=== PATIENT | female | born 1945 | race Caucasian/White ===

== ENCOUNTER → 2017-12-07 10:16 | Outpatient (CLI) | payer MEDICARE, SELFPAY ==
[2017-12-07 12:21] LABS: AST(SGOT) 20 U/L (15-37); Alanine Aminotransfer ALT/SGPT 33 U/L (13-56); Alkaline Phosphatase 71 U/L (45-117); Bilirubin, Direct 0.09 mg/dL (0.00-0.30); Cholesterol 225 mg/dL (200); High Density Lipoprotein 42 mg/dL; Triglycerides 289 mg/dL; Very Low Density Lipoprotein 58 mg/dL (5-40)
== END ==
PROVIDERS: Physician Assistant Medical; Family Provider Internal Medicine; PCP Internal Medicine; Visit Provider Internal Medicine Cardiovascular Disease
DX: E78.5 Hyperlipidemia, unspecified (principal)
CPT/HCPCS: 36415; 80061; 80076

== ENCOUNTER → 2018-01-20 09:14 | Outpatient (CLI) | payer MEDICARE, SELFPAY ==
[2018-01-20 10:42] LABS: AST(SGOT) 25 U/L (15-37); Alanine Aminotransfer ALT/SGPT 42 U/L (13-56); Albumin, Serum 3.6 g/dL (3.2-5.0); Alkaline Phosphatase 63 U/L (45-117); Bilirubin, Direct 0.08 mg/dL (0.00-0.30); Cholesterol 194 mg/dL (200); Globulin 3.7 g/dL (2.2-4.2); High Density Lipoprotein 49 mg/dL; Protein, Total 7.3 g/dL (6.4-8.2); Triglycerides 186 mg/dL; Very Low Density Lipoprotein 37 mg/dL (5-40)
== END ==
PROVIDERS: Family Provider Internal Medicine; PCP Internal Medicine; Visit Provider Internal Medicine Cardiovascular Disease
DX: E78.5 Hyperlipidemia, unspecified (principal)
CPT/HCPCS: 36415; 80061; 80076

== ENCOUNTER → 2018-12-30 07:45 | Outpatient (CLI) | payer MEDICARE, SELFPAY ==
[2017-12-10 08:36] VITALS: BMI 29.5
[2018-12-30 09:01] LABS: AST(SGOT) 25 U/L (15-37); Alanine Aminotransfer ALT/SGPT 39 U/L (13-56); Albumin, Serum 3.6 g/dL (3.2-5.0); Alkaline Phosphatase 73 U/L (45-117); Bilirubin, Direct 0.07 mg/dL (0.00-0.30); Cholesterol 200 mg/dL (200); Globulin 3.6 g/dL (2.2-4.2); High Density Lipoprotein 39 mg/dL; Protein, Total 7.2 g/dL (6.4-8.2); Triglycerides 234 mg/dL; Very Low Density Lipoprotein 47 mg/dL (5-40)
== END ==
PROVIDERS: Internal Medicine Cardiovascular Disease; Family Provider Internal Medicine; PCP Internal Medicine; Referring Provider Physician Assistant Medical; Visit Provider Physician Assistant Medical
DX: E78.5 Hyperlipidemia, unspecified (principal)
CPT/HCPCS: 36415; 80061; 80076

== ENCOUNTER 2020-01-23 19:41 | Emergency (ER) | payer MEDICARE, SELFPAY ==
[2019-01-02 08:40] VITALS: BMI 30.7
[2020-01-23 19:41] VITALS: BP 133/68; PULSE 104; RESP 20; TEMP 37.4; O2SAT 96; BMI 31.8
--- NOTE | 2020-01-23 20:02 | EKG12_ITS ---
Test Reason : GENILLNESS Blood Pressure : / mmHG Vent. Rate : 089 BPM Atrial Rate : 089 BPM P-R Int : 186 ms QRS Dur : 086 ms QT Int : 372 ms P-R-T Axes : 050 -06 036 degrees QTc Int : 452 ms Normal sinus rhythm Minimal voltage criteria for LVH, may be normal variant Borderline ECG Confirmed by CLAYTON MCCABE ([id number]), newspaper or periodical editor NELLY RYAN ([id number]) on 01/25/2020 11:45:57 AM Referred By: JHONY Confirmed By:CLAYTON MCCABE
--- NOTE | 2020-01-23 20:02 | RAD_ITS ---
HISTORY: CHILLS, SHAKING. EXAM: XR Chest 1 View: COMPARISON: January 20, 2013 FINDINGS: # of images incl. paperwork: 1 Tortuosity of the descending thoracic aorta is slightly more accentuated. Since the previous study the patient has had left rotator cuff repair. Shoulder arthritis remains. Lungs are clear. Heart is not enlarged. No acute osseous pathology perceived. Pulmonary vascularity is distinct. No effusions. RAD/Chest 1 View (Portable) IMPRESSION: No acute cardiopulmonary disease perceived. at 2052 Reported and signed by: Jovi Butler MD Electronically Signed: Jovi Butler MD at 20:51 EDT Tel , Service support ,
--- NOTE | 2020-01-23 20:03 | ED.DCSUM_ITS ---
- ER Visit Summary Date of Service: 01/23/20 Chief Complaint: Chills and body aches History of Present Illness: The patient is a 74 F 3 of palpitations and muscle aches and hypothyroidism. Patient's had multiple surgeries. States she felt fine today until 3:30 PM started aching all over and having chills. No documented fever. No nausea, vomiting or diarrhea. Last 2 days she has had dysuria but no cloudy or bloody urine. No abdominal pain. No chest pain or shortness of breath. Says she has muscle cramping. Denies any cough or abdominal pain. Physical Examination: Older female coming by her spouse vital signs stable afebrile. Temperature nine 9.4. Pulse ox 96% on room air no signs hypoxia. No distress. HEENT exam unremarkable. Neck nontender no lymph adenopathy. Lungs clear to auscultation bilaterally. Heart regular rhythm no murmur. Abdomen soft nontender normal bowel sounds no peritoneal signs. Patient moving all 4 extremities are neurovascular intact. Calves nontender without edema. Neurologically she is awake alert with no focal motor deficits. Test Results: X-ray portable 1 view read by myself and the radiologist shows no acute abnormality. Normal cardiac silhouette. No infiltrate. EKG shows normal sinus rhythm rate 89 with no acute abnormality. CBC normal white count of 9. Hemoglobin 13. No bands. Chemistries unremarkable gap of 7. BUN of 30 creatinine 0.9. UA normal. No nitrates, no white cells, no red cells and no bacteria. Blood cultures x2 are pending. Repeat exam at 2150 patient is doing well. Has no complaints. I repeated her oral temperature was 97.4. Her abdomen is benign. She states she is feeling better. We discussed all of her test results. They are comfortable being discharged home. Emergency Department Course and Treatment: Older female with chills and body aches concern for infectious etiology. Possible UTI or even pyelonephritis. Infectious work-up will be pursued. Treatment Plan: Outpatient follow-up. Return if worse. Disposition: Discharge Impression: Acute chills uncertain etiology Viral syndrome This note was generated with [employer] dictation software. It may contain incorrect words, spelling, and punctuation that were not noted in review of the chart prior to signing ED Disposition - Plan for ED Patient: Referrals: Stephane Rhodes MD [Primary Care Provider] -
[2020-01-23 20:24] VITALS: BP 123/50; PULSE 90; RESP 18; TEMP 37.3; O2SAT 96
[2020-01-23 20:26] LABS: Absolute Lymphocyte Count 0.35 X10^3/uL (0.83-4.51); Absolute Neutrophil Count 8.4 X10^3/uL (2.0-7.7); Basophil# 0.01 X10^3/uL; Basophil% 0.1 % (0-1); Eosinophil# 0.04 X10^3/uL; Eosinophils% 0.4 % (0-5); Hematocrit 41.3 % (37-47); Hemoglobin 13.6 g/dL (12.0-15.0); Lymphocyte # 0.35 X10^3/ul (4.0); Lymphocyte % 3.9 % (19-41); Mean Corp Hgb Conc 32.9 g/dL (32-36); Mean Corpuscular Hgb 30.4 pg (27.0-32.0); Mean Corpuscular Volume 92.2 fL (81-99); Monocyte# 0.18 X10^3/uL; NRBC Flagged by Analyzer 0 % (0-5); Neutrophil # 8.36 X10^3/uL (2.7-7.7); POSITIVE DIFFERENTIAL YES; Platelet Count 178 K/mm3 (150-450); RBC Distribution Width CV 11.9 % (11.6-14.6); RBC Distribution Width SD 40.4 fl (35.1-43.9); Red Blood Count 4.48 M/mm3 (4.2-5.4)
[2020-01-23] MEDS: 0.9% Normal Saline 1,000 ML 1000 ML IV (20:27)
[2020-01-23 20:31] LABS: Differential Indicated SCAN CRITERIA MET
[2020-01-23 20:46] LABS: Anion Gap 7 (5-15); BUN 30 mg/dL (7-18); BUN/Creat Ratio 32.6 RATIO (10-20); Calcium,Total 8.8 mg/dL (8.5-10.1); Chloride 104 mmol/L (98-107); Creatinine, Serum 0.92 mg/dL (0.55-1.02); EST Glomerular Filtration Rate 63 mL/min (>60); Est Glom Filt Rate - Afr Amer 77 mL/min (>60); Estimated Creatinine Clearance 39.12 ml/min; Glucose 142 mg/dL (74-106); Potassium 3.9 mmol/L (3.5-5.1); Sodium Level 138 mmol/L (136-145)
[2020-01-23 20:50] LABS: Bacteria 0 SEEN /hpf (None Seen); Mucous, Urine 0 SEEN /hpf (<or=2+); Red Blood Cells-Urine 0 SEEN /hpf (0-5); White Blood Cells 0 SEEN /hpf (0-5)
[2020-01-23 20:51] LABS: Color, Urine Yellow (Yellow); Glucose, Dipstick Normal (Normal); Ketone-Dipstick Negative (Negative); Leukocyte Esterase-Dipstick Negative /ul (Negative); Nitrite-Dipstick Negative (Negative); Occult Blood-Urine Negative /ul (Negative); Protein-Dipstick Negative (Negative); Specific Gravity, Urine 1.015 (1.002-1.030); Urine Bilirubin Dipstick Negative (Negative); Urine Clarity Sl. Cloudy (Clear); Urine Urobilinogen Normal (Normal)
[2020-01-23 20:54] LABS: Differential Comment SCANNED
[2020-01-23 20:57] LABS: Squamous Epithelial Cells - UA 0-5 SEEN /hpf (5-10)
[2020-01-23 21:00] VITALS: BP 132/60; PULSE 94; RESP 15; TEMP 36.6; O2SAT 94
[2020-01-23 21:56] VITALS: BP 127/60; PULSE 71; RESP 17; O2SAT 97
--- NOTE | 2020-01-23 21:57 | DCINST.ED_ITS ---
ED Disposition - Plan for ED Patient: Disposition: Home or Assisted Living Instructions: ED Viral Syndrome Referrals: Stephane Rhodes MD [Primary Care Provider] - 3-5 Days if not improving Additional Instructions: Fluids and rest. All your test tonight were normal there is no obvious signs of any type of bacterial infection. This may or may not be a virus. Follow-up with your doctor if not improving. Return to the ER if you are feeli ng worse.
== END 2020-01-23 22:06 | disposition home or self-care (01) ==
PROVIDERS: Emergency Provider Emergency Medicine; PCP Internal Medicine
DX: B34.9 Viral infection, unspecified (principal); E03.9 Hypothyroidism, unspecified; Z79.82 Long term (current) use of aspirin; Z79.899 Other long term (current) drug therapy
CPT/HCPCS: 71045; 80048; 81001; 85025; 87040; 93005; 96360; 99284; J7030

== ENCOUNTER → 2020-04-05 07:43 | Outpatient (CLI) | payer MEDICARE, SELFPAY ==
[2020-04-05 09:14] LABS: AST(SGOT) 24 U/L (15-37); Alanine Aminotransfer ALT/SGPT 42 U/L (13-56); Albumin, Serum 3.7 g/dL (3.2-5.0); Alkaline Phosphatase 79 U/L (45-117); Bilirubin, Direct 0.12 mg/dL (0.00-0.30); Cholesterol 203 mg/dL (200); High Density Lipoprotein 39 mg/dL; Protein, Total 7.7 g/dL (6.4-8.2); Triglycerides 209 mg/dL; Very Low Density Lipoprotein 42 mg/dL (5-40)
== END ==
PROVIDERS: PCP Internal Medicine; Referring Provider Physician Assistant Medical; Visit Provider Physician Assistant Medical
DX: E78.5 Hyperlipidemia, unspecified (principal)
CPT/HCPCS: 36415; 80061; 80076

== ENCOUNTER 2021-04-08 19:49 | Emergency (ER) | payer MEDICARE, SELFPAY ==
[2021-04-08 19:51] VITALS: BP 115/48; PULSE 73; RESP 18; TEMP 37.8; O2SAT 93; BMI 31.2
[2021-04-08 20:40] LABS: Absolute Lymphocyte Count 0.72 X10^3/uL (0.83-4.51); Absolute Neutrophil Count 2.6 X10^3/uL (2.0-7.7); Basophil# 0.01 X10^3/uL; Basophil% 0.3 % (0-1); Eosinophil# 0.01 X10^3/uL; Eosinophils% 0.3 % (0-5); Hematocrit 37.7 % (37-47); Hemoglobin 12.3 g/dL (12.0-15.0); Lymphocyte # 0.72 X10^3/ul (0.83-4.51); Lymphocyte % 19.8 % (19-41); Mean Corp Hgb Conc 32.6 g/dL (32-36); Mean Corpuscular Hgb 29.3 pg (27.0-32.0); Mean Corpuscular Volume 89.8 fL (81-99); Mean Platelet Vol. 10.6 fl (6.2-12.0); Monocyte% 8.3 % (0-10); NRBC Flagged by Analyzer 0 % (0-5); Neutrophil # 2.58 X10^3/uL (2.7-7.7); Platelet Count 120 K/mm3 (150-450); RBC Distribution Width CV 12.7 % (11.6-14.6); RBC Distribution Width SD 42.3 fl (35.1-43.9); White Blood Count 3.6 K/mm3 (4.4-11.0)
[2021-04-08 20:59] LABS: Anion Gap 8 (5-15); BUN 12 mg/dL (7-18); Chloride 97 mmol/L (98-107); Creatinine, Serum 0.66 mg/dL (0.55-1.02); EST Glomerular Filtration Rate 92 mL/min (>60); Est Glom Filt Rate - Afr Amer 111 mL/min (>60); Estimated Creatinine Clearance 34.91 ml/min; Glucose 164 mg/dL (74-106); Potassium 3.9 mmol/L (3.5-5.1); Sodium Level 134 mmol/L (136-145)
[2021-04-08 21:15] LABS: Procalcitonin 0.12 ng/mL (0.00-0.09)
--- NOTE | 2021-04-08 21:20 | EX.ED.DYSGE1 ---
HPI History of Present Illness Chief Complaint: Nausea/Vomiting Detail of Chief Complaint: Nausea and COVID-19 infection Informant: patient Narrative Narrative: Patient presents to the emergency department not feeling well related to her COVID-19 infection. Patient states that she has had symptoms for 9 days and was diagnosed 5 days ago with COVID-19. Patient complains of nausea and dry heaves. He describes body aches and headache. She denies abdominal pain. She denies shortness of breath. She denies diarrhea. Patient has history of high cholesterol and history of arthritis. Patient denies urinary symptoms. Patient states her is also [facility] and has COVID-19. Patient is not immunized against COVID-19. Prior similar symptoms: No PFSH PFSH Medical History (Updated 04/08/21 @ 22:[address] Sampson Khan, DO) Diverticulitis GERD (gastroesophageal reflux disease) Hyperlipidemia Hypothyroidism Osteoarthritis Palpitations Syncope Home Medications albuterol sulfate 2 puff INHALATION Q4H PRN PRN 05/09/13 [History Last Taken Unknown] esomeprazole magnesium 40 mg PO DAILY 05/09/13 [History Last Taken 05/21/13 21:00 40] fluticasone propionate 2 spray NASAL DAILY 05/09/13 [History Last Taken Unknown] aspirin 81 mg tablet,delayed release 81 mg PO QDAY 12/07/17 [History Last Taken Unknown] biotin-folic acid-vitamin B complex with C-zinc 3 mg-0.8 mg tablet 1 tab PO QDAY tab 12/07/17 [History Last Taken Unknown] calcium carbonate 600 mg(1,500 mg)-vitamin D3 800 unit chewable tablet 1 tab PO QDAY tab 12/07/17 [History Last Taken Unknown] cholecalciferol (vitamin D3) 25 mcg (1,000 unit) tablet 1,000 unit PO QDAY 12/07/17 [History Last Taken Unknown] fexofenadine 180 mg tablet 180 mg PO QDAY PRN 12/07/17 [History Last Taken Unknown] lutein 20 mg tablet 20 mg PO QDAY 12/07/17 [History Last Taken Unknown] magnesium 250 mg tablet 250 mg PO QDAY 12/07/17 [History Last Taken Unknown] duloxetine 20 mg capsule,delayed release 20 mg PO QDAY cap 12/10/17 [History Last Taken Unknown] trazodone 50 mg tablet 50 mg PO QHS tab 12/10/17 [History Last Taken Unknown] atenolol 25 mg tablet 37.5 mg PO DAILY tab 04/10/20 [History Last Taken Unknown] celecoxib 100 mg capsule 200 mg PO BID cap 04/10/20 [History Last Taken Unknown] estradiol 1 g VAGINAL QWEEK 04/10/20 [History Last Taken Unknown] levothyroxine 150 mcg tablet 150 mcg PO DAILY 04/10/20 [History Last Taken Unknown] potassium gluconate 595 mg (99 mg) tablet 595 mg PO DAILY 04/10/20 [History Last Taken Unknown] ondansetron 4 mg PO Q8H PRN PRN #10 tab 04/08/21 [Rx Last Taken Unknown] Allergy/AdvReac Type Severity Reaction Status Date / Time ezetimibe [From Zetia] AdvReac Intermediate GI Verified 04/08/21 19:50 upset/diarrhea Sulfa (Sulfonamide AdvReac Intermediate Other Verified 04/08/21 19:50 Antibiotics) Kjjjoab-Poq-Toh Reductase AdvReac Other Verified 04/08/21 19:50 Inhibitor Family History Father Sudden cardiac , Onset Age: 77 Mother CVA (cerebral vascular accident) Atrial fibrillation Sister CAD (coronary artery disease) Myocardial infarction Surgical History History of arthroplasty of left knee History of bilateral breast reduction surgery History of carpal tunnel surgery History of laparoscopic cholecystectomy History of partial thyroidectomy History of total hysterectomy History of total right knee replacement Social History (Updated 04/10/20 @ 10:[address] Darwin Jc MD) Smoking Status: Never smoker alcohol intake: never ROS ROS ED Constitutional Constitutional ED: Reports systems reviewed and no addt'l complaints, except as documented; Denies body ache(s), change in weight or chills Eyes Eyes: Denies acute decrease in peripheral vision, change in vision, double vision or loss of vision ENT ENT ED: Reports none; Denies ear pain, lip swelling, loss taste/smell, neck pain, otalgia or sore throat Cardiovascular Cardiovascular: Reports none; Denies abdominal pain, chest pain with activity, leg edema, lightheadedness, palpitations, rapid heart rate or syncope Respiratory/Chest Respiratory/Chest: Reports none; Denies change in mental status, dry cough, dyspnea, hemoptysis, shortness of breath at rest or shortness of breath with exertion Gastrointestinal Gastrointestinal: Reports none, nausea and vomiting; Denies abdominal pain, change in stool character, diarrhea, hematemesis, hematochezia, melena or rectal bleeding Genitourinary Genitourinary ED: Reports none; Denies abdominal discomfort, anuria, dysuria, genital pain or polyuria Musculoskeletal Musculoskeletal: Reports none, arthralgias and myalgias; Denies back pain, difficulty walking, extremity pain or muscle weakness Integumentary Reports none; Denies abscess or rash Neurologic Neurologic: Reports none and headache(s); Denies abnormal gait, confusion, focal weakness, frequent falls, loss of vision, numbness, paresthesias, radicular pain, vertigo or weakness Psychiatric Psychiatric: Reports systems reviewed and no addt'l complaints, except as documented and none; Denies behavioral changes, confusion, difficulty concentrating, hallucinations, suicidal ideation, tactile hallucinations or visual hallucinations Endocrine Endocrinology: Denies none, cold intolerance, excessive sweating, fatigue or heat intolerance Hematologic/Lymphatic Hematologic/Lymphatic: Reports none; Denies anemia, easy bleeding or easy bruising Allergic/Immunologic Allergic/Immunologic ED: Denies as per HPI, none, lip swelling, mouth swelling, throat swelling, tongue swelling or hives EXAM Physical Exam Const Vital Signs: 04/08/21 19:51 04/08/21 21:21 04/08/21 21:23 Temperature 100.1 F H Temperature Source Temporal Pulse Rate 73 Respiratory Rate 18 22 H Respiratory Effort Normal Non-Labored Respiratory Depth Normal Respiratory Pattern Normal Blood Pressure 115/48 L Blood Pressure Mean 70 Pulse Ox 93 91 Oxygen Delivery Method Room Air Room Air Room Air 04/08/21 22:00 Temperature 98.4 F Temperature Source Temporal Pulse Rate 75 Respiratory Rate 20 H Respiratory Effort Respiratory Depth Respiratory Pattern Blood Pressure 124/58 H Blood Pressure Mean 80 Pulse Ox 92 Oxygen Delivery Method Room Air Positive well nourished and well developed General Appearance ED: well developed and NAD HEENT Reports TM's clear and moist mucous membranes normocephalic and atraumatic; Negative for trauma or tenderness Tympanic Membrane ED: Yes TM's clear Eyes PERRL and EOMs intact bilaterally General Eye ED: Negative for pale conjunctiva or scleral icterus Neck no lymphadenopathy, supple and no JVD General: Negative for tenderness Chest Wall inspection of chest normal and palpation of chest normal Chest: Negative for tenderness Resp normal respiratory effort and clear to auscultation bilaterally Effort and Inspection: Negative for respiratory distress or pain with movement Auscultation: Negative for rhonchi, wheezes or diminished lung sounds Cardio regular rate, regular rhythm, S1 normal heart sound, S2 normal heart sound and no murmurs Peripheral Pulses: pulses 2+ throughout GI normal to inspection, nondistended, normoactive bowel sounds, soft to palpation, non-tender, non-distended and no masses Back/Spine no CVA tenderness and no thoracic nor lumbar tenderness Extremity normal to inspection General Extremety ED: Negative for edema General Extremity: Negative for edema Neuro oriented x3, CN's II-XII intact bilaterally, no sensory deficits noted and gait normal Sensorium / Orientation: awake, alert, oriented to person, oriented to place and oriented to time Motor Exam: strength 5/5 throughout and strength abnormal Psych mental status grossly normal Skin no rashes or lesions noted and no wounds MDM MDM MDM Narrative Medical decision making narrative: Patient had nebulized tablets on arrival. She was given Zofran 4 mg IV and some IV fluids. Patient felt markedly improved. Feel patient can be safely discharged to home. She will be given a prescription for Zofran. Patient is comfortable with plan and states that she was just here to help get help with her nausea. Patient advised to return if increased difficulty breathing or condition should worsen anyway. Lab Data Attestation: I reviewed the patient's lab results. Labs: Laboratory Results - last 24 hr 04/08/21 04/08/21 04/08/21 20:27 20:27 20:27 WBC 3.6 L RBC 4.20 Hgb 12.3 Hct 37.7 MCV 89.8 MCH 29.3 MCHC 32.6 RDW Std Deviation 42.3 RDW Coeff of Moses 12.7 Plt Count 120 L MPV 10.6 Immature Gran % (Auto) 0.300 Neut % (Auto) 71.0 H Lymph % (Auto) 19.8 [place] % (Auto) 8.3 Eos % (Auto) 0.3 Baso % (Auto) 0.3 Absolute Neuts (auto) 2.6 Absolute Lymphs (auto) 0.72 L Nucleated RBC % 0 Sodium 134 L Potassium 3.9 Chloride 97 L Carbon Dioxide 29.0 Anion Gap 8 BUN 12 Creatinine 0.66 Estim Creat Clear Calc 34.91 Est GFR (MDRD) Af Amer 111 Est GFR (MDRD) Non-Af 92 BUN/Creatinine Ratio 18.0 Glucose 164 H Calcium 8.0 L Total Bilirubin 0.40 Direct Bilirubin 0.13 AST 34 ALT 40 Alkaline Phosphatase 69 Total Protein 7.2 Albumin 3.0 L Globulin 4.2 Lipase 111 Procalcitonin 04/08/21 20:27 WBC RBC Hgb Hct MCV MCH MCHC RDW Std Deviation RDW Coeff of Moses Plt Count MPV Immature Gran % (Auto) Neut % (Auto) Lymph % (Auto) [place] % (Auto) Eos % (Auto) Baso % (Auto) Absolute Neuts (auto) Absolute Lymphs (auto) Nucleated RBC % Sodium Potassium Chloride Carbon Dioxide Anion Gap BUN Creatinine Estim Creat Clear Calc Est GFR (MDRD) Af Amer Est GFR (MDRD) Non-Af BUN/Creatinine Ratio Glucose Calcium Total Bilirubin Direct Bilirubin AST ALT Alkaline Phosphatase Total Protein Albumin Globulin Lipase Procalcitonin 0.12 H Radiography Chest X-Ray - ED: 1 View Diagnostic Testing: Radiology Impression Chest X-Ray 04/08/21 21:21 IMPRESSION: Indeterminate right basilar opacity, may be secondary to a confluence of shadows however cannot exclude atelectasis and/or evolving pneumonia. Electronically Signed: Carmenza Shay MD at 22:23 EDT Tel , Service support , 1 view chest x-ray obtained interpreted by myself as bibasilar faint infiltrates. Radiology felt it was consistent with right basilar opacity which may be secondary to confluence of shadows however cannot exclude atelectasis and or evolving pneumonia. Discharge Plan Triage Chief Complaint: Nausea/Vomiting Other Complaint: Back ED Provider: Sampson Khan Dx/Rx/DC Orders Clinical Impression: Nausea, COVID-19 Instructions: Nausea Vomit Control, Caring for Someone Who Has COVID-19 Prescriptions: New ondansetron [ondansetron] 4 MG tablet 4 mg PO Q8H PRN PRN (Reason: Nausea) Qty: 10 RF: 0 No Action duloxetine [Cymbalta] 20 mg capsule,delayed release(DR/EC) 20 mg PO QDAY RF: 0 calcium carbonate 600 mg(1,500 mg)-vitamin D3 800 unit chewable tablet 600 mg (1,500 mg)-800 unit tablet,chewable 1 tab PO QDAY RF: 0 cholecalciferol (vitamin D3) 1,000 unit tablet 1,000 unit PO QDAY RF: 0 biotin-folic acid-vitamin B complex with C-zinc 3 mg-0.8 mg tablet 3-0.8 mg tablet 1 tab PO QDAY RF: 0 lutein 20 mg tablet 20 mg PO QDAY RF: 0 magnesium 250 mg tablet 250 mg PO QDAY RF: 0 aspirin 81 mg tablet,delayed release (DR/EC) 81 mg PO QDAY RF: 0 fexofenadine [Afshan Allergy] 180 mg tablet 180 mg PO QDAY PRN (Reason: Allergies) RF: 0 trazodone 50 mg tablet 50 mg PO QHS RF: 0 estradiol 0.01 % (0.1 mg/gram) cream 1 g VAGINAL QWEEK RF: 0 levothyroxine 150 mcg tablet 150 mcg PO DAILY RF: 0 potassium gluconate 595 mg (99 mg) tablet 595 mg PO DAILY RF: 0 albuterol sulfate 1 INHALER inhaler 2 puff INHALATION Q4H PRN PRN (Reason: Asthma) RF: 0 fluticasone propionate 1 SPRAY spray,suspension 2 spray NASAL DAILY RF: 0 esomeprazole magnesium 40 MG capsule 40 mg PO DAILY RF: 0 celecoxib 100 mg capsule 200 mg PO BID RF: 0 atenolol 25 mg tablet 37.5 mg PO DAILY RF: 0 Primary Care Provider: Stephane Rhodes Referrals: Stephane Rhodes MD [Primary Care Provider] - 5-7 Days Disposition Disposition: Home, Self Care
[2021-04-08 21:21] VITALS: RESP 22; O2SAT 91
--- NOTE | 2021-04-08 21:21 | RAD_ITS ---
STUDY: X-RAY CHEST REASON FOR EXAM: Female, 76 years old. COUGH. COVID POSITIVE TECHNIQUE: Single frontal view of the chest. COMPARISON: 01/20/2013 and 01/23/2020. FINDINGS: There is a vague right basilar opacity. Normal size heart. Normal mediastinum and sandie. Normal visualized pulmonary arteries. Normal visualized aortic arch and descending thoracic aorta. Normal visualized thoracic spine. Normal visualized ribs, clavicles, and shoulders. There is no demonstrated abnormality of the visualized soft tissue structures of the upper abdomen. RAD/Chest 1 View (Portable) IMPRESSION: Indeterminate right basilar opacity, may be secondary to a confluence of shadows however cannot exclude atelectasis and/or evolving pneumonia. Electronically Signed: Carmenza Shay MD at 22:23 EDT Tel , Service support ,
[2021-04-08 21:23] VITALS: O2SAT 92
[2021-04-08 22:00] VITALS: BP 124/58; PULSE 72; PULSE 75; RESP 20; RESP 26; TEMP 36.9; O2SAT 92
[2021-04-08 22:06] LABS: AST(SGOT) 34 U/L (15-37); Alanine Aminotransfer ALT/SGPT 40 U/L (13-56); Alkaline Phosphatase 69 U/L (45-117); Bilirubin, Direct 0.13 mg/dL (0.00-0.30); Globulin 4.2 g/dL (2.2-4.2); Lipase 111 U/L (73-393); Protein, Total 7.2 g/dL (6.4-8.2)
[2021-04-08] MEDS: 0.9% Normal Saline 1,000 ML 150 ML IV (22:21)
[2021-04-08 22:45] VITALS: BP 127/53; PULSE 77; RESP 21; TEMP 36.8; O2SAT 94
== END 2021-04-08 23:21 | disposition home or self-care (01) ==
PROVIDERS: Emergency Medicine; Emergency Provider Emergency Medicine; PCP Internal Medicine
DX: U07.1 COVID-19 (principal); E78.00 Pure hypercholesterolemia, unspecified; E03.9 Hypothyroidism, unspecified; K21.9 Gastro-esophageal reflux disease without esophagitis; M19.90 Unspecified osteoarthritis, unspecified site; Z79.82 Long term (current) use of aspirin; Z79.899 Other long term (current) drug therapy
CPT/HCPCS: 71045; 80048; 80076; 83690; 84145; 85025; 96360; 96361; 99283; J7030; A4216

== ENCOUNTER 2021-04-10 19:32 | Observation (INO) | payer MEDICARE, SELFPAY ==
[2021-04-10] VITALS (9 sets, daily range): BP systolic 109–132; BP diastolic 48–58; PULSE 73–80; RESP 18–23; TEMP 38.3; O2SAT 86–100; BMI 31.2
[2021-04-10 19:46] LABS: Absolute Lymphocyte Count 0.81 X10^3/uL (0.83-4.51); Absolute Neutrophil Count 2.6 X10^3/uL (2.0-7.7); Basophil# 0.01 X10^3/uL; Basophil% 0.3 % (0-1); Eosinophil# 0.01 X10^3/uL; Eosinophils% 0.3 % (0-5); Hematocrit 34.2 % (37-47); Hemoglobin 11.6 g/dL (12.0-15.0); Lymphocyte # 0.81 X10^3/ul (0.83-4.51); Lymphocyte % 21.7 % (19-41); Mean Corp Hgb Conc 33.9 g/dL (32-36); Mean Corpuscular Hgb 29.5 pg (27.0-32.0); Mean Platelet Vol. 9.8 fl (6.2-12.0); Monocyte# 0.26 X10^3/uL; NRBC Flagged by Analyzer 0 % (0-5); Neutrophil # 2.63 X10^3/uL (2.7-7.7); Neutrophil % 70.4 % (47-70); Platelet Count 136 K/mm3 (150-450); RBC Distribution Width CV 12.7 % (11.6-14.6); RBC Distribution Width SD 40.8 fl (35.1-43.9); Red Blood Count 3.93 M/mm3 (4.2-5.4); White Blood Count 3.7 K/mm3 (4.4-11.0)
[2021-04-10 20:17] LABS: D-Dimer Quantitative (DVT/PE) 0.93 FEU/ug/m (0.27-0.49)
[2021-04-10 20:23] LABS: ALB/GLOB Ratio 0.7 RATIO (0.9-2.4); AST(SGOT) 36 U/L (15-37); Alanine Aminotransfer ALT/SGPT 39 U/L (13-56); Albumin, Serum 2.8 g/dL (3.2-5.0); Alkaline Phosphatase 67 U/L (45-117); Anion Gap 8 (5-15); BUN 10 mg/dL (7-18); BUN/Creat Ratio 15.3 RATIO (10-20); Calcium,Total 7.5 mg/dL (8.5-10.1); Chloride 93 mmol/L (98-107); Creatinine, Serum 0.65 mg/dL (0.55-1.02); EST Glomerular Filtration Rate 94 mL/min (>60); Est Glom Filt Rate - Afr Amer 114 mL/min (>60); Estimated Creatinine Clearance 34.91 ml/min; Globulin 4.1 g/dL (2.2-4.2); Glucose 167 mg/dL (74-106); Potassium 3.4 mmol/L (3.5-5.1); Protein, Total 6.9 g/dL (6.4-8.2); Sodium Level 128 mmol/L (136-145)
--- NOTE | 2021-04-10 22:25 | EDS_ITS ---
HPI History of Present Illness Chief Complaint: General Illness Informant: patient Onset/Context/Timing Onset: Weeks Context: Gradual Onset Timing: Continuous Current Severity: Mild Narrative Narrative: 76-year-old female history of Covid diagnosis and on 12 days of symptoms. also has Covid and was admitted to the hospital. She was seen approximately 2 to 3 days ago and was discharged home from the emergency department. States she is feeling worse. Feels weaker. Has had a lot of nausea and vomiting. Feels dehydrated and short of breath. She denies any chest or abdominal pain. She still having fever and chills. Denies any dysuria. Prior similar symptoms: No Recent Illness/Hospitalization: No [facility] Medical History Diverticulitis GERD (gastroesophageal reflux disease) Hyperlipidemia Hypothyroidism Non-smoker Osteoarthritis Palpitations Syncope Home Medications esomeprazole magnesium 40 mg PO DAILY 05/09/13 [History Last Taken 04/10/21] fluticasone propionate 2 spray NASAL DAILY 05/09/13 [History Last Taken 04/10/21] aspirin 81 mg tablet,delayed release 81 mg PO QDAY 12/07/17 [History Last Taken 04/10/21] calcium carbonate 600 mg(1,500 mg)-vitamin D3 800 unit chewable tablet 1 tab PO QDAY tab 12/07/17 [History Last Taken 04/09/21] cholecalciferol (vitamin D3) 25 mcg (1,000 unit) tablet 1,000 unit PO QDAY 12/07/17 [History Last Taken 04/10/21] fexofenadine 180 mg tablet 180 mg PO QDAY PRN 12/07/17 [History Last Taken 04/10/21] duloxetine 20 mg capsule,delayed release 20 mg PO QDAY cap 12/10/17 [History Last Taken 04/10/21] trazodone 50 mg tablet 50 mg PO QHS tab 12/10/17 [History Last Taken 04/09/21] atenolol 25 mg tablet 37.5 mg PO DAILY tab 04/10/20 [History Last Taken 04/10/21] celecoxib 100 mg capsule 200 mg PO BID cap 04/10/20 [History Last Taken 04/10/21] levothyroxine 150 mcg tablet 150 mcg PO DAILY 04/10/20 [History Last Taken 04/10/21] ondansetron 4 mg PO Q8H PRN PRN #10 tab 04/08/21 [Rx Last Taken 04/10/21] Allergy/AdvReac Type Severity Reaction Status Date / Time ezetimibe [From Zetia] AdvReac Intermediate GI Verified 04/08/21 19:50 upset/diarrhea Sulfa (Sulfonamide AdvReac Intermediate Other Verified 04/08/21 19:50 Antibiotics) Hcxmelz-Edn-Jpt Reductase AdvReac Other Verified 04/08/21 19:50 Inhibitor Family History Father Sudden cardiac , Onset Age: 77 Mother CVA (cerebral vascular accident) Atrial fibrillation Sister CAD (coronary artery disease) Myocardial infarction Surgical History History of arthroplasty of left knee History of bilateral breast reduction surgery History of carpal tunnel surgery History of laparoscopic cholecystectomy History of partial thyroidectomy History of total hysterectomy History of total right knee replacement Social History Smoking Status: Never smoker alcohol intake: never ROS ROS ED ROS Narrative Nausea and vomiting. Fever and chills. Cough and shortness of breath. Review of Systems ROS Unobtainable: Denies due to encephalopathy Constitutional Constitutional ED: Reports chills, fever(s) and subjective Eyes Eyes: Denies change in vision ENT ENT ED: Denies ear pain or sore throat Cardiovascular Cardiovascular: Denies chest pain or palpitations Respiratory/Chest Respiratory/Chest: Reports cough and dyspnea Gastrointestinal Gastrointestinal: Reports diarrhea, nausea and vomiting; Denies abdominal pain Genitourinary Genitourinary ED: Denies dysuria or hematuria Musculoskeletal Musculoskeletal: Reports myalgias Integumentary Denies rash Neurologic Neurologic: Denies headache(s) Psychiatric Psychiatric: Denies depression Endocrine Endocrinology: Denies polyuria Allergic/Immunologic Allergic/Immunologic ED: Denies urticaria EXAM Physical Exam Narrative Exam Narrative: Elderly female. Initial vital signs are stable. She has a low- grade temperature 100.9. She does not look septic or toxic she does look dehydrated and weak. H EENT exam dry mucous membranes otherwise unremarkable. Neck nontender no lymphadenopathy. Lungs clear to auscultation bilaterally. Heart regular rhythm rate about 73. No murmur. Chest were nontender. Abdomen soft nontender. Moving all 4 extremities. Calves nontender no edema. Neurologically she is awake and alert with no focal motor deficits. Const Vital Signs: 04/10/21 19:32 04/10/21 20:30 04/10/21 20:31 Temperature 100.9 F H Temperature Source Temporal Pulse Rate 73 75 Respiratory Rate 20 H 18 Blood Pressure 128/50 H Blood Pressure Mean 76 Pulse Ox 92 86 95 Oxygen Delivery Method Room Air Room Air Nasal Cannula Oxygen Flow Rate (L/min) 3 04/10/21 21:17 04/10/21 21:40 04/10/21 21:41 Temperature Temperature Source Pulse Rate 75 Respiratory Rate 23 H Blood Pressure 116/53 L Blood Pressure Mean 74 Pulse Ox 96 98 98 Oxygen Delivery Method Nasal Cannula Nasal Cannula Oxygen Flow Rate (L/min) 3 3 04/10/21 22:14 04/10/21 22:37 04/10/21 23:00 Temperature Temperature Source Pulse Rate 74 80 Respiratory Rate 19 H 18 21 H Blood Pressure 109/58 L 132/48 H Blood Pressure Mean 75 76 Pulse Ox 93 89 100 Oxygen Delivery Method Room Air Room Air Nasal Cannula Oxygen Flow Rate (L/min) 2 Positive well nourished and well developed; Negative for obese, cachectic, contractures or unkempt General Appearance ED: well developed and NAD; Negative for unkempt, cachectic, contractures, cyanotic or diaphoretic Nutritional Appearance: Negative for cachectic or obese HEENT Reports dry mucous membranes; Denies moist mucous membranes Negative for trauma or tenderness Mouth ED: Yes dry mucous membranes Mouth: dry mucous membranes Eyes PERRL Neck no lymphadenopathy, supple and no JVD General: Negative for tenderness Chest Wall inspection of chest normal and palpation of chest normal Resp normal respiratory effort and clear to auscultation bilaterally Cardio regular rate, regular rhythm, S1 normal heart sound, S2 normal heart sound and no murmurs GI normal to inspection, nondistended, normoactive bowel sounds, non-tender, non- distended and no masses Auscultation: normoactive bowel sounds Palpation: soft; Negative for tender, guarding or rebound tenderness present Back/Spine no CVA tenderness General Back: Negative for CVA tenderness Extremity normal to inspection General Extremety ED: Negative for edema or tenderness General Extremity: Negative for edema Neuro oriented x3 and CN's II-XII intact bilaterally Sensorium / Orientation: alert; Negative for orientation impaired, lethargic or stuporous Motor Exam: strength 5/5 throughout Psych mental status grossly normal Appearance: Negative for unkempt Skin no rashes or lesions noted and no wounds MDM MDM MDM Narrative Medical decision making narrative: Older female 2 weeks of Covid symptoms. Clinically looks dehydrated and just generally weak. She will be treated with IV fluids. Tylenol. And will need admission. Repeat exam slightly improved with the IV fluids and medications. Already spoken the hospitalist will be a [facility] admission. We are awaiting the CTA results. Lab Data Lab results narrative: White count 3.7. Hemoglobin 11.6. Platelets 36,000. D- dimer is elevated 0.93. Sodium 128. Gap of 8. Creatinine 0.65. Liver enzymes unremarkable. Labs: Laboratory Results - last 24 hr 04/10/21 04/10/21 04/10/21 19:35 19:35 19:35 WBC 3.7 L RBC 3.93 L Hgb 11.6 L Hct 34.2 L MCV 87.0 MCH 29.5 MCHC 33.9 RDW Std Deviation 40.8 RDW Coeff of Moses 12.7 Plt Count 136 L MPV 9.8 Immature Gran % (Auto) 0.300 Neut % (Auto) 70.4 H Lymph % (Auto) 21.7 Beckham % (Auto) 7.0 Eos % (Auto) 0.3 Baso % (Auto) 0.3 Absolute Neuts (auto) 2.6 Absolute Lymphs (auto) 0.81 L Nucleated RBC % 0 D-Dimer Quant (PE/DVT) 0.93 H* Sodium 128 L Potassium 3.4 L Chloride 93 L Carbon Dioxide 27.0 Anion Gap 8 BUN 10 Creatinine 0.65 Estim Creat Clear Calc 34.91 Est GFR (MDRD) Af Amer 114 Est GFR (MDRD) Non-Af 94 BUN/Creatinine Ratio 15.3 Glucose 167 H Calcium 7.5 L Total Bilirubin 0.50 AST 36 ALT 39 Alkaline Phosphatase 67 Total Protein 6.9 Albumin 2.8 L Globulin 4.1 Albumin/Globulin Ratio 0.7 L Radiography Diagnostic Testing: Radiology Impression Chest CTA 04/10/21 22:32 IMPRESSION: No demonstrated pulmonary embolism or arterial dissection. Ill-defined subpleural groundglass opacities are seen more prominent in the lung bases , may represent atypical pneumonia or viral pneumonia (COVID-19 ?). Electronically Signed: Brittnee Arredondo MD at 1:07 EDT Tel , Service support , CTA of the chest read by the radiologist showed no PE. There were findings consistent with Covid pneumonitis. Rhythm Strip Rhythm Strip: Sinus Rhythm Rate: 81 Ectopy: None EKG Initial EKG: Attestation: I personally reviewed and interpreted this EKG as follows: Interpretation: Sinus Rhythm and No Acute Injury Pattern Comments: Normal sinus rhythm rate 81 no acute signs of MO or ischemia. Prior EKG tracings: not available for review Discharge Plan Dx/Rx/DC Orders Clinical Impression: COVID-19, Generalized weakness, Nausea & vomiting, Acute hyponatremia, Hypoxia Disposition Disposition: Acute Care Hospital [facility] Discharge Date/Time: 04/11/21 00:08
--- NOTE | 2021-04-10 22:32 | CT_ITS ---
STUDY: CTA CHEST REASON FOR EXAM: Female, 76 years old. elevated d-dimer RADIATION DOSAGE (If Supplied By Facility): CTDIvol = ( 10.07 ) mGy, DLP = ( 335.62 ) mGycm TECHNIQUE: The examination was performed with the intravenous administration of IV 100mL Isovue-370. Post-processing of the angiographic images was performed, with multiplanar reformation and 3D reconstruction. Individualized dose optimization techniques were used for this CT. COMPARISON: None. FINDINGS: Normal enhancement of the main pulmonary artery and right and left pulmonary arteries. Normal enhancement of the bilateral peripheral pulmonary arteries. There is no demonstrated pulmonary embolism. Normal thoracic aorta and visualized great vessels. There is no demonstrated aortic dissection. Normal heart and pericardium. Normal mediastinum. Normal hilar regions. Normal visualized trachea and bronchi. The lungs are well expanded. Ill-defined subpleural groundglass opacities are seen more prominent in the lung bases , may represent atypical pneumonia or viral pneumonia (COVID-19 ?). . Normal pleura. Normal chest wall structures. Normal osseous structures. Normal visualized upper abdomen. CT/CTA Chest W/WO Contrast IMPRESSION: No demonstrated pulmonary embolism or arterial dissection. Ill-defined subpleural groundglass opacities are seen more prominent in the lung bases , may represent atypical pneumonia or viral pneumonia (COVID-19 ?). Electronically Signed: Brittnee Arredondo MD at 1:07 EDT Tel , Service support ,
--- NOTE | 2021-04-10 22:33 | EKG12_ITS ---
Test Reason : ABDOMINAL PAIN Blood Pressure : / mmHG Vent. Rate : 081 BPM Atrial Rate : 081 BPM P-R Int : 180 ms QRS Dur : 086 ms QT Int : 408 ms P-R-T Axes : 049 -06 022 degrees QTc Int : 473 ms Normal sinus rhythm Normal ECG Confirmed by MALCOLM ARELLANO, CRISS ([id number]), international editorial producer NELLY RYAN ([id number]) on 04/11/2021 1:15:21 PM Referred By: VIC/ANNETTE Confirmed By:CRISS FOWLER MD
[2021-04-10] MEDS: Ondansetron 4 MG/2 ML Vial IV (22:35)
[2021-04-10] MEDS: 0.9% Normal Saline 1,000 ML 999 ML IV (22:35)
[2021-04-10] MEDS: Acetaminophen 325 MG Tablet 650 MG PO (22:53)
[2021-04-10] MEDS: dexAMETHasone 10 MG/ML Vial IV (22:53)
--- NOTE | 2021-04-10 23:21 | PCM.HP.STD ---
HPI - General General Date of Admission: 04/10/21 Date of Service: 04/10/21 Chief Complaint: Malaise HPI Narrative BETO ROWLEY, is a 76 F with a significant history of hypothyroidism who presents to emergency department with 1 week history of progressively worsening malaise. Associated with her symptoms is nausea. Also she had diarrhea which actually resolved the day before presentation. She reports anorexia. She denies dysgeusia. She reports anosmia. She reports shortness of breath. She denies myalgia. She reports a productive cough with postnasal drainage. She reports nasal congestion. Patient is unvaccinated. Patient was at a hospital about 2 days ago with Covid-like symptoms. Her symptoms has been going on for the past 12 days. Her also had Covid. [facility] Medical History Diverticulitis GERD (gastroesophageal reflux disease) Hyperlipidemia Hypothyroidism Osteoarthritis Palpitations Syncope Home Medications albuterol sulfate 2 puff INHALATION Q4H PRN PRN 05/09/13 [History Last Taken Unknown] esomeprazole magnesium 40 mg PO DAILY 05/09/13 [History Last Taken 05/21/13 21:00 40] fluticasone propionate 2 spray NASAL DAILY 05/09/13 [History Last Taken Unknown] aspirin 81 mg tablet,delayed release 81 mg PO QDAY 12/07/17 [History Last Taken Unknown] calcium carbonate 600 mg(1,500 mg)-vitamin D3 800 unit chewable tablet 1 tab PO QDAY tab 12/07/17 [History Last Taken Unknown] cholecalciferol (vitamin D3) 25 mcg (1,000 unit) tablet 1,000 unit PO QDAY 12/07/17 [History Last Taken Unknown] fexofenadine 180 mg tablet 180 mg PO QDAY PRN 12/07/17 [History Last Taken Unknown] duloxetine 20 mg capsule,delayed release 20 mg PO QDAY cap 12/10/17 [History Last Taken Unknown] trazodone 50 mg tablet 50 mg PO QHS tab 12/10/17 [History Last Taken Unknown] atenolol 25 mg tablet 37.5 mg PO DAILY tab 04/10/20 [History Last Taken Unknown] celecoxib 100 mg capsule 200 mg PO BID cap 04/10/20 [History Last Taken Unknown] levothyroxine 150 mcg tablet 150 mcg PO DAILY 04/10/20 [History Last Taken Unknown] ondansetron 4 mg PO Q8H PRN PRN #10 tab 04/08/21 [Rx Last Taken Unknown] Allergy/AdvReac Type Severity Reaction Status Date / Time ezetimibe [From Zetia] AdvReac Intermediate GI Verified 04/08/21 19:50 upset/diarrhea Sulfa (Sulfonamide AdvReac Intermediate Other Verified 04/08/21 19:50 Antibiotics) Xjotaqz-Lvh-Khw Reductase AdvReac Other Verified 04/08/21 19:50 Inhibitor Family History Father Sudden cardiac , Onset Age: 77 Mother CVA (cerebral vascular accident) Atrial fibrillation Sister CAD (coronary artery disease) Myocardial infarction Surgical History History of arthroplasty of left knee History of bilateral breast reduction surgery History of carpal tunnel surgery History of laparoscopic cholecystectomy History of partial thyroidectomy History of total hysterectomy History of total right knee replacement Social History Smoking Status: Never smoker alcohol intake: never ROS ROS Narrative Constitutional: Reports anorexia and fatigue. Denies change in weight Eyes: Denies blurry vision, change in eye color, change in vision, discharge from eye(s), double vision, erythema, eye pain, loss of vision or other HEENT: Reports nasal congestion and postnasal drainage. Denies dysphagia, ear pain, epistaxis, headache(s), hearing loss, sore throat or other Cardiovascular: Denies chest pain or palpitations. Respiratory/Chest: Reports productive cough. Reports shortness of breath Gastrointestinal: Reports nausea and diarrhea. Denies abdominal pain, coffee ground emesis, constipation, dyspepsia, hematemesis, hematochezia, melena, or other Genitourinary: Denies burning urination, difficulty urinating, dysuria, hematuria, nocturia, urinary frequency, urinary hesitancy, urinary incontinence, urinary urgency or other Musculoskeletal: Denies arthralgias, back pain, joint pain, joint stiffness, joint swelling, myalgias, neck pain or other Neurologic: Denies abnormal gait, abnormal speech, confusion, disequilibrium, dizziness, focal weakness, headache(s), numbness, paresthesias, seizure-like activity, seizures, syncope, tingling, tremor(s) or other Psychiatric: Denies anxiety, depression, homicidal ideation, suicidal ideation or other Endocrinology: Denies change in body appearance, cold intolerance, excessive sweating, heat intolerance, polydipsia, polyuria or other Hematologic/Lymphatic: Denies anemia, easy bleeding, easy bruising, lymphadenopathy or other Integumentary: Denies rashes Allergic/Immunologic: Denies rhinitis, hives, eczema, asthma or other Vital Signs Vital Signs Vital Signs: 04/10/21 19:32 04/10/21 20:30 04/10/21 20:31 Temperature 100.9 F H Temperature Source Temporal Pulse Rate 73 75 Respiratory Rate 20 H 18 Blood Pressure 128/50 H Blood Pressure Mean 76 Pulse Ox 92 86 95 Oxygen Delivery Method Room Air Room Air Nasal Cannula Oxygen Flow Rate (L/min) 3 04/10/21 21:17 04/10/21 21:40 04/10/21 21:41 Temperature Temperature Source Pulse Rate 75 Respiratory Rate 23 H Blood Pressure 116/53 L Blood Pressure Mean 74 Pulse Ox 96 98 98 Oxygen Delivery Method Nasal Cannula Nasal Cannula Oxygen Flow Rate (L/min) 3 3 04/10/21 22:14 04/10/21 22:37 04/10/21 23:00 Temperature Temperature Source Pulse Rate 74 80 Respiratory Rate 19 H 18 21 H Blood Pressure 109/58 L 132/48 H Blood Pressure Mean 75 76 Pulse Ox 93 89 100 Oxygen Delivery Method Room Air Room Air Nasal Cannula Oxygen Flow Rate (L/min) 2 Weight Weight: 72.575 kg Body Mass Index (BMI) 31.2 Physical Exam Narrative Physical exam: General: Well-nourished, well-developed. Head: Normocephalic, atraumatic, no tenderness Eyes: PERRLA, EOMI ENT, no trauma, moist mucous membranes, no rhinorrhea Neck: Nontender, full range of motion, no spinal tenderness, deformities, step-off CVS: Regular rate and rhythm. S1-S2 present. No murmur, gallop or rub. Respiratory : Tachypnea. Rales. Abdomen: Soft, nontender, nondistended, normal bowel sounds, no masses : Deferred Back: Nontender, no CVA tenderness, no midline spinal tenderness, deformities, step-offs Extremities: Nontender full range of motion, no trauma Skin: Normal color, no trauma, abrasions Neuro: Alert, oriented, cranial nerves II through XII grossly intact. Psychiatry: Normal mood. Normal affect. Not depressed. Not anxious. Results Lab / Micro Data Result Diagrams: 04/10/21 19:35 04/10/21 19:35 Labs: Laboratory Results - last 24 hr 04/10/21 19:35: D-Dimer Quant (PE/DVT) 0.93 H* 04/10/21 19:35: WBC 3.7 L, RBC 3.93 L, Hgb 11.6 L, Hct 34.2 L, MCV 87.0, MCH 29.5, MCHC 33.9, RDW Std Deviation 40.8, RDW Coeff of Moses 12.7, Plt Count 136 L, MPV 9.8, Immature Gran % (Auto) 0.300, Neut % (Auto) 70.4 H, Lymph % (Auto) 21.7, Mcdonough % (Auto) 7.0, Eos % (Auto) 0.3, Baso % (Auto) 0.3, Absolute Neuts (auto) 2.6, Absolute Lymphs (auto) 0.81 L, Nucleated RBC % 0 04/10/21 19:35: Sodium 128 L, Potassium 3.4 L, Chloride 93 L, Carbon Dioxide 27.0, Anion Gap 8, BUN 10, Creatinine 0.65, Estim Creat Clear Calc 34.91, Est GFR (MDRD) Af Amer 114, Est GFR (MDRD) Non-Af 94, BUN/Creatinine Ratio 15.3, Glucose 167 H, Calcium 7.5 L, Total Bilirubin 0.50, AST 36, ALT 39, Alkaline Phosphatase 67, Total Protein 6.9, Albumin 2.8 L, Globulin 4.1, Albumin/Globulin Ratio 0.7 L Assessment & Plan Assessment/Plan (1) Respiratory failure with hypoxia: QUALIFIERS: Chronicity: acute Qualified Code(s): J96.01 - Acute respiratory failure with hypoxia (2) Nausea: (3) COVID-19: (4) Generalized weakness: (5) Acute hyponatremia: (6) Hypoxia: PLAN: Acute hypoxemic respiratory failure secondary to COVID-19 virus. Reportedly her oxygen saturation was 86 % on room air at the emergency department. Patient required supplemental oxygen at emergent department. Continue oxygen supplementation to maintain oxygen saturation of at least 92%. Review of community records show that patient has a positive coronavirus PCR test will get [facility] 04/04[facility]2021. Patient is unvaccinated. Review of labs show that on 04/08/2021 procalcitonin was 0.12, unrevealing. D-dimer was mildly elevated. Chest CTA was obtained emergency department and results are pending. Received IV Decadron at emergency department. P.o. Decadron ordered. We will hold off remdesivir at this time as of the time of examination patient was 1.5 L nasal cannula and her oxygen saturation was about 99%. A CBC reviewed showed a white count of 3.7; hemoglobin of 11.6. Trend CBC and CMP. Tylenol for fever Mucinex ordered Generalized weakness Likely COVID-19. PT and OT to work with patient Acute hyponatremia likely from SIADH and GI from vomiting and diarrhea. Reviewed of emergency department labs showed sodium of 128. Potassium of 3.4. Received normal saline bolus in the emergency department. We will put on normal saline potassium replacement at 50 mL's per hour. Of note patient received IV contrast and hydration may prevent further renal damage. Pseudohypocalcemia Calcium 7.5. Albumin of 2.8. Corrected calcium is 8.5. Trend CMP. DVT Prophylaxis Lovenox ordered Charges/Coding Visit Charges OBSV E&M: [id number] Initial observation care L3
[2021-04-11] VITALS (7 sets, daily range): BP systolic 100–120; BP diastolic 43–58; PULSE 63–74; RESP 16–20; TEMP 36.4–36.7; O2SAT 92–99; BMI 31.5
--- NOTE | 2021-04-11 00:36 | PCS.PANDOC ---
PANDEMIC DOCUMENTATION INITIATED: Date: 04/11/2021 Time: 29
[2021-04-11] MEDS: KCL 20MEQ in 0.9% NS 20 MEQ/1,000 ML IV.SOLN. 50 MEQ IV (01:58)
[2021-04-11] MEDS: traZODone 50 MG Tablet PO (02:01)
[2021-04-11] MEDS: 0.9% Saline Lock 10 ML Syringe IV (02:01)
[2021-04-11] MEDS: guaiFENesin 600 MG Tablet PO ×2 (02:01→09:57)
[2021-04-11] MEDS: MELATONIN 3 MG TABLET PO (02:01)
[2021-04-11 02:24] LABS: Procalcitonin 0.09 ng/mL (0.00-0.09)
[2021-04-11 06:28] LABS: Absolute Lymphocyte Count 0.56 X10^3/uL (0.83-4.51); Absolute Neutrophil Count 2.3 X10^3/uL (2.0-7.7); Hematocrit 32.8 % (37-47); Hemoglobin 11.4 g/dL (12.0-15.0); Lymphocyte # 0.56 X10^3/ul (0.83-4.51); Lymphocyte % 18.6 % (19-41); Mean Corp Hgb Conc 34.8 g/dL (32-36); Mean Corpuscular Hgb 30.4 pg (27.0-32.0); Mean Corpuscular Volume 87.5 fL (81-99); Mean Platelet Vol. 9.9 fl (6.2-12.0); Monocyte# 0.17 X10^3/uL; Monocyte% 5.6 % (0-10); NRBC Flagged by Analyzer 0 % (0-5); Neutrophil # 2.26 X10^3/uL (2.7-7.7); Neutrophil % 75.1 % (47-70); POSITIVE DIFFERENTIAL YES; Platelet Count 129 K/mm3 (150-450); RBC Distribution Width CV 12.7 % (11.6-14.6); Red Blood Count 3.75 M/mm3 (4.2-5.4)
[2021-04-11 06:30] LABS: Differential Indicated SCAN CRITERIA MET
[2021-04-11 06:43] LABS: Differential Comment SCANNED
[2021-04-11 06:46] LABS: ALB/GLOB Ratio 0.6 RATIO (0.9-2.4); AST(SGOT) 33 U/L (15-37); Alanine Aminotransfer ALT/SGPT 36 U/L (13-56); Albumin, Serum 2.5 g/dL (3.2-5.0); Alkaline Phosphatase 62 U/L (45-117); Anion Gap 6 (5-15); BUN 10 mg/dL (7-18); BUN/Creat Ratio 17.1 RATIO (10-20); Calcium,Total 7.5 mg/dL (8.5-10.1); Chloride 102 mmol/L (98-107); Creatinine, Serum 0.58 mg/dL (0.55-1.02); EST Glomerular Filtration Rate 107 mL/min (>60); Est Glom Filt Rate - Afr Amer 129 mL/min (>60); Estimated Creatinine Clearance 34.91 ml/min; Glucose 220 mg/dL (74-106); Potassium 3.7 mmol/L (3.5-5.1); Protein, Total 6.5 g/dL (6.4-8.2); Sodium Level 135 mmol/L (136-145)
[2021-04-11] MEDS: Celecoxib 200 MG Capsule PO (09:53)
[2021-04-11] MEDS: DULoxetine Hcl 20 MG Capsule PO (09:54)
[2021-04-11] MEDS: dexAMETHasone 2 MG TABLET 6 MG PO (09:54)
[2021-04-11] MEDS: Aspirin E.C. 81 MG Tablet PO (09:56)
[2021-04-11] MEDS: Cholecalciferol (VIT D3) 25 MCG TABLET (1,000 UNITS) PO (09:57)
[2021-04-11] MEDS: Calcium Carb/Vitamin D 1 TABLET Tablet PO (09:57)
[2021-04-11] MEDS: Enoxaparin 30 MG/0.3 ML Syringe SC (09:57)
[2021-04-11] MEDS: Pantoprazole Sodium 40 MG Tablet PO (09:57)
[2021-04-11] MEDS: Levothyroxine 150 MCG Tablet PO (09:57)
[2021-04-11] MEDS: Atenolol 25 MG Tablet 37.5 MG PO (09:57)
--- NOTE | 2021-04-11 14:00 | CASEMGMT ---
RN RICH NUT PICKER CM to room to meet with patient for initial transition planning/care coordination assessment. CARLINE VILLANUEVA introduced self and role at [facility].? Pt voices understanding and consents to assessment at this time.? Pt sitting on edge of bed in no distress at this time.? Pt is A/O at this time and answers all questions appropriately.?? Care providers, pharmacy, and demographics verified/updated at this time. PCP: Dr Rhodes Specialists: Dr Jc--cardiology, Dr Phill Eden @ [facility] for back surgery Preferred Pharmacy: [facility] Retail Insurance: [employer] Prescription Benefit:? Yes LNOK: , Cole. Dtr, Rosa. Son, Crow Living Arrangements: Lives w/her in 1 /2 story home w/4 steps to enter. Independent w/ADL's and IADL's. Children live nearby and can help bring groceries/supplies as needed. Transportation: Pt states drives self and states no transportation concerns at this time.? also drives. Son will take pt home @ d/c. DME: ? States has the following DME:? shower chair, rails/grab bars, hand held shower, cane--uses PRN, rollator--uses for long distances ?Pt states no need for further DME at this time.? HHC/SNF: No history of either. Denies need for HHC. Pt wishes to return home and states has no concerns with going home at time of discharge.? CM to follow for any discharge planning/needs.? Pt voices no concerns/needs at this time.? Advised pt to ask for CM if any questions/concerns/needs arise.? Voices understanding. PLAN: ?Home w/discharge plans in place. Home ambulatory testing has been completed. Pt does not qualify for Home O2. Aidee PLAZA RN, CM
--- NOTE | 2021-04-11 14:00 | PCM.DC ---
Discharge Instructions Diet Discharge Diet: No restrictions Activity Discharge Activity: Return to Normal Activity Follow Up Care Test Results: Test results from this visit will be discussed in further detail at your follow-up appointment, if applicable. Discharge Plan Admission Admit Date/Time: 04/10/21 23:20 Primary Reason for Your Visit: Acute COVID-19 pneumonia Attending Provider: Ileana Dorman Primary Care Provider: Stephane Rhodes Instructions Additional Instructions / Restrictions: Complete your oral Decadron. Continue to quarantine for a total of 20 days after start of symptoms. Follow-up with your primary care doctor after quarantine. Discharge Orders/Prescriptions Prescriptions: New dexamethasone 2 mg Tablet 6 mg PO DAILY 8 Days Qty: 24 RF: 0 albuterol sulfate 90 mcg/actuation Hfa Aerosol Inhaler 2 puff inhalation Q4H PRN PRN (Reason: sob/wheezing) 30 Days Qty: 1 RF: 0 guaifenesin [Mucus Relief ER] 600 mg Tablet Extended Release 12hr 600 mg PO BID 7 Days Qty: 14 RF: 0 Continued duloxetine [Cymbalta] 20 mg capsule,delayed release(DR/EC) 20 mg PO QDAY RF: 0 calcium carbonate 600 mg(1,500 mg)-vitamin D3 800 unit chewable tablet 600 mg (1,500 mg)-800 unit tablet,chewable 1 tab PO QDAY RF: 0 cholecalciferol (vitamin D3) 1,000 unit tablet 1,000 unit PO QDAY RF: 0 aspirin 81 mg tablet,delayed release (DR/EC) 81 mg PO QDAY RF: 0 fexofenadine [Afshan Allergy] 180 mg tablet 180 mg PO QDAY PRN (Reason: Allergies) RF: 0 trazodone 50 mg tablet 50 mg PO QHS RF: 0 levothyroxine 150 mcg tablet 150 mcg PO DAILY RF: 0 fluticasone propionate 1 SPRAY spray,suspension 2 spray NASAL DAILY RF: 0 esomeprazole magnesium 40 MG capsule 40 mg PO DAILY RF: 0 celecoxib 100 mg capsule 200 mg PO BID RF: 0 atenolol 25 mg tablet 37.5 mg PO DAILY RF: 0 ondansetron 4 MG tablet 4 mg PO Q8H PRN PRN (Reason: Nausea) Qty: 10 RF: 0 Referrals / Follow Up: Stephane Rhodes MD [Primary Care Provider] - Within 2 Weeks Disposition Disposition (needs filled in before D/C Order can be placed): Home, Self Care
--- NOTE | 2021-04-11 14:07 | CASEMGMT ---
CARLINE VILLANUEVA Note: Inpatient order reviewed against Medicare medical necessity requirements. Current documentation does not support an inpatient status. Case submitted to physician advisor for review who agrees pt is appropriate for observation status. Dr. Macdonald agreeable as evidenced by his subsequent order for observation status. Pt notified of status change from inpatient to outpatient. [employer] form provided and signed by pt. Pt provided a copy and original placed in pt?s chart. Aidee PLAZA RN CM
--- NOTE | 2021-04-11 14:13 | DS.PCM_ITS ---
Providers Date of Admission: 04/10/21 Date of Discharge: 04/11/21 Primary Care Physician: Dr. Stephane Rhodes MD Reason For Visit: ACUTE HYPOXEMIC RESPIRATORY FAILURE SECONDARY TO Diagnosis Discharge Diagnosis (1) Respiratory failure with hypoxia: Status: Acute Code(s): J96.91 - Respiratory failure, unspecified with hypoxia Qualifiers: Chronicity: acute Qualified Code(s): J96.01 - Acute respiratory failure with hypoxia (2) Nausea: Status: Resolved Code(s): R11.0 - Nausea (3) COVID-19: Status: Acute Code(s): U07.1 - COVID-19 (4) Generalized weakness: Status: Acute Code(s): R53.1 - Weakness (5) Acute hyponatremia: Status: Acute Code(s): E87.1 - Hypo-osmolality and hyponatremia (6) Hypoxia: Status: Resolved Code(s): R09.02 - Hypoxemia Medications at Discharge Home Medications esomeprazole magnesium 40 mg PO DAILY 05/09/13 fluticasone propionate 2 spray NASAL DAILY 05/09/13 aspirin 81 mg tablet,delayed release 81 mg PO QDAY 12/07/17 calcium carbonate 600 mg(1,500 mg)-vitamin D3 800 unit chewable tablet 1 tab PO QDAY tab 12/07/17 cholecalciferol (vitamin D3) 25 mcg (1,000 unit) tablet 1,000 unit PO QDAY 12/07/17 fexofenadine 180 mg tablet 180 mg PO QDAY PRN 12/07/17 duloxetine 20 mg capsule,delayed release 20 mg PO QDAY cap 12/10/17 trazodone 50 mg tablet 50 mg PO QHS tab 12/10/17 atenolol 25 mg tablet 37.5 mg PO DAILY tab 04/10/20 celecoxib 100 mg capsule 200 mg PO BID cap 04/10/20 levothyroxine 150 mcg tablet 150 mcg PO DAILY 04/10/20 ondansetron 4 mg PO Q8H PRN PRN #10 tab 04/08/21 albuterol sulfate 2 puff INHALATION Q4H PRN PRN 30 Days #1 g 04/11/21 dexamethasone 6 mg PO DAILY 8 Days #24 tab 04/11/21 guaifenesin [Mucus Relief ER] 600 mg PO BID 7 Days #14 tab 04/11/21 Hospital Course Operations None Procedures None Summary of Care Provided Minutes Spent on Discharge: 40 Hospital Course: 76-year-old female who presented with 1 week history of generalized weakness and nausea. She also reported diarrhea which had resolved the day before admission. She admits to anorexia and anosmia but denies dysgeusia. Patient is unvaccinated. Her symptoms have been going on for about 12 days. Her has Covid. Her oxygen saturation was 86% on room air in the emergency department. Patient had a positive Covid test done on 04/04/21. Her WBC count was 3.7. CT of the chest showed ill-defined subpleural groundglass opacities more prominent in the lung bases. Patient's management was that of acute hypoxic respiratory failure secondary to COVID-19 pneumonia. She was started on Decadron. She was not a candidate for remdesivir. Patient improving her oxygenation. She did not qualify for oxygen at discharge. She was discharged to complete 10 days of Decadron. She was asked to complete 20 days of quarantine. Should follow-up with her primary care doctor for quarantine. Physical Exam Narrative Physical exam: General: Alert, Oriented x3, Cooperative, No apparent distress, Well developed HEENT: Atraumatic Oral: Moist Mucosa Neck: Supple Lungs: Clear to auscultation Cardiovascular: HS I+II, regular, no murmurs Abdomen: Bowel Sounds Present, Soft, Non Tender Extremities: No edema Weight / BMI Weight Weight: 73.164 kg Body Mass Index (BMI) 31.5 ABG / Lab / Microbiology Data Result Diagrams: 04/11/21 06:15 04/11/21 06:15 Laboratory: Laboratory Results - last 24 hr 04/10/21 19:35: D-Dimer Quant (PE/DVT) 0.93 H* 04/10/21 19:35: WBC 3.7 L, RBC 3.93 L, Hgb 11.6 L, Hct 34.2 L, MCV 87.0, MCH 29.5, MCHC 33.9, RDW Std Deviation 40.8, RDW Coeff of Moses 12.7, Plt Count 136 L, MPV 9.8, Immature Gran % (Auto) 0.300, Neut % (Auto) 70.4 H, Lymph % (Auto) 21.7, Crisp % (Auto) 7.0, Eos % (Auto) 0.3, Baso % (Auto) 0.3, Absolute Neuts (auto) 2.6, Absolute Lymphs (auto) 0.81 L, Nucleated RBC % 0 04/10/21 19:35: Sodium 128 L, Potassium 3.4 L, Chloride 93 L, Carbon Dioxide 27.0, Anion Gap 8, BUN 10, Creatinine 0.65, Estim Creat Clear Calc 34.91, Est GFR (MDRD) Af Amer 114, Est GFR (MDRD) Non-Af 94, BUN/Creatinine Ratio 15.3, Glucose 167 H, Calcium 7.5 L, Total Bilirubin 0.50, AST 36, ALT 39, Alkaline Phosphatase 67, Total Protein 6.9, Albumin 2.8 L, Globulin 4.1, Albumin/Globulin Ratio 0.7 L 04/10/21 19:35: Procalcitonin 0.09 04/11/21 06:15: WBC 3.0 L, RBC 3.75 L, Hgb 11.4 L, Hct 32.8 L, MCV 87.5, MCH 30.4, MCHC 34.8, RDW Std Deviation 41.0, RDW Coeff of Moses 12.7, Plt Count 129 L, MPV 9.9, Immature Gran % (Auto) 0.700, Neut % (Auto) 75.1 H, Lymph % (Auto) 18.6 L, Crisp % (Auto) 5.6, Eos % (Auto) 0.0, Baso % (Auto) 0.0, Absolute Neuts (auto) 2.3, Absolute Lymphs (auto) 0.56 L, Nucleated RBC % 0, Differential Comment SCANNED, Diff Path Review November04/11/21 06:15: Sodium 135 L, Potassium 3.7, Chloride 102, Carbon Dioxide 27.0, Anion Gap 6, BUN 10, Creatinine 0.58, Estim Creat Clear Calc 34.91, Est GFR (MDRD) Af Amer 129, Est GFR (MDRD) Non-Af 107, BUN/Creatinine Ratio 17.1, Glucose 220 H, Calcium 7.5 L, Total Bilirubin 0.40, AST 33, ALT 36, Alkaline Phosphatase 62, Total Protein 6.5, Albumin 2.5 L, Globulin 4.0, Albumin/Globulin Ratio 0.6 L Microbiology: Microbiology 04/11/21 02:30 Mucosa - Eye Respiratory Panel (PCR) - Final Radiography Diagnostic Testing: Radiology Impression Chest CTA 04/10/21 22:32 IMPRESSION: No demonstrated pulmonary embolism or arterial dissection. Ill-defined subpleural groundglass opacities are seen more prominent in the lung bases , may represent atypical pneumonia or viral pneumonia (COVID-19 ?). Electronically Signed: Brittnee Arredondo MD at 1:07 EDT Tel , Service support , D/C Instructions Discharge Diet: No restrictions Meaningful Use Info Meaningful Use Diagnoses (Choose all that apply): None applicable Discharge Plan Admission Admit Date/Time: 04/10/21 23:20 Primary Reason for Your Visit: Acute COVID-19 pneumonia Attending Provider: Ileana Dorman Primary Care Provider: Stephane Rhodes Instructions Additional Instructions / Restrictions: Complete your oral Decadron. Continue to quarantine for a total of 20 days after start of symptoms. Follow-up with your primary care doctor after quarantine. Discharge Orders/Prescriptions Prescriptions: New dexamethasone 2 mg Tablet 6 mg PO DAILY 8 Days Qty: 24 RF: 0 albuterol sulfate 90 mcg/actuation Hfa Aerosol Inhaler 2 puff inhalation Q4H PRN PRN (Reason: sob/wheezing) 30 Days Qty: 1 RF: 0 guaifenesin [Mucus Relief ER] 600 mg Tablet Extended Release 12hr 600 mg PO BID 7 Days Qty: 14 RF: 0 Continued duloxetine [Cymbalta] 20 mg capsule,delayed release(DR/EC) 20 mg PO QDAY RF: 0 calcium carbonate 600 mg(1,500 mg)-vitamin D3 800 unit chewable tablet 600 mg (1,500 mg)-800 unit tablet,chewable 1 tab PO QDAY RF: 0 cholecalciferol (vitamin D3) 1,000 unit tablet 1,000 unit PO QDAY RF: 0 aspirin 81 mg tablet,delayed release (DR/EC) 81 mg PO QDAY RF: 0 fexofenadine [Afshan Allergy] 180 mg tablet 180 mg PO QDAY PRN (Reason: Allergies) RF: 0 trazodone 50 mg tablet 50 mg PO QHS RF: 0 levothyroxine 150 mcg tablet 150 mcg PO DAILY RF: 0 fluticasone propionate 1 SPRAY spray,suspension 2 spray NASAL DAILY RF: 0 esomeprazole magnesium 40 MG capsule 40 mg PO DAILY RF: 0 celecoxib 100 mg capsule 200 mg PO BID RF: 0 atenolol 25 mg tablet 37.5 mg PO DAILY RF: 0 ondansetron 4 MG tablet 4 mg PO Q8H PRN PRN (Reason: Nausea) Qty: 10 RF: 0 Referrals / Follow Up: Stephane Rhodes MD [Primary Care Provider] - Within 2 Weeks Disposition Disposition (needs filled in before D/C Order can be placed): Home, Self Care Charges/Coding Visit Charges OBSV E&M: 78350 Observation care discharge
[2021-04-11 14:47] LABS: Pathologist Review Reviewed
== END 2021-04-11 18:17 | disposition home or self-care (01) ==
LOC: ED 22:32 → MS3 23:25
PROVIDERS: Admitting Provider Hospitalist; Emergency Provider Emergency Medicine; PCP Internal Medicine; Visit Provider Internal Medicine
DX: U07.1 COVID-19 (principal); J96.01 Acute respiratory failure with hypoxia; E87.1 Hypo-osmolality and hyponatremia; K21.9 Gastro-esophageal reflux disease without esophagitis; E78.5 Hyperlipidemia, unspecified; E03.9 Hypothyroidism, unspecified; J12.82 Pneumonia due to coronavirus disease 2019; M19.90 Unspecified osteoarthritis, unspecified site; Z79.899 Other long term (current) drug therapy; Z79.890 Hormone replacement therapy; Z79.51 Long term (current) use of inhaled steroids; Z79.82 Long term (current) use of aspirin; Z28.3 Underimmunization status
CPT/HCPCS: 36415; 71275; 80053; 84145; 85025; 85379; 87426; 87633; 93005; 94760; 96372; 96374; 96375; 97162; 97166; 99218; 99285; J7030; Q9967; A4216; G0378; J2405

== ENCOUNTER 2021-04-15 19:45 | Inpatient (IN) | payer MEDICARE, SELFPAY ==
[2021-04-15] VITALS (7 sets, daily range): BP systolic 112–138; BP diastolic 47–62; PULSE 60–98; RESP 17–20; TEMP 36.4–37.2; O2SAT 89–96; BMI 30.5
--- NOTE | 2021-04-15 20:18 | RAD_ITS ---
EXAM: XR Chest, 1 View CLINICAL INDICATION: 76 years old, Female; SOB TECHNIQUE: Frontal view of the chest. This report was created using [employer] report generation technology. COMPARISON: Chest x-ray dated 04/08/2021 FINDINGS: Lungs and pleural spaces: Mild infiltrates in the mid and lower lungs which have progressed since prior study and are worrisome for pneumonia. No pneumothorax. No effusion. Heart: Unremarkable. Cardiac silhouette not enlarged. Mediastinum: Central airways and mediastinal contour are unremarkable. Bones/joints: Degenerative changes both shoulders. Postoperative changes left shoulder. Soft tissues: Unremarkable. RAD/Chest 1 View (Portable) IMPRESSION: Mild infiltrates in the mid and lower lungs which have progressed since prior study and are worrisome for pneumonia. ASSESSMENT: ABNORMAL report - There are abnormal findings in this report which may be related or unrelated to the reason for the exam. Electronically Signed: Jose L Daniels MD at 21:17 EDT Tel , Service support ,
[2021-04-15 20:33] LABS: Absolute Lymphocyte Count 0.72 X10^3/uL (0.83-4.51); Absolute Neutrophil Count 6.3 X10^3/uL (2.0-7.7); Basophil# 0.01 X10^3/uL; Basophil% 0.1 % (0-1); Hematocrit 33.7 % (37-47); Hemoglobin 11.2 g/dL (12.0-15.0); Lymphocyte # 0.72 X10^3/ul (0.83-4.51); Lymphocyte % 9.6 % (19-41); Mean Corp Hgb Conc 33.2 g/dL (32-36); Mean Corpuscular Hgb 29.3 pg (27.0-32.0); Mean Corpuscular Volume 88.2 fL (81-99); Mean Platelet Vol. 10.1 fl (6.2-12.0); Monocyte# 0.34 X10^3/uL; Monocyte% 4.5 % (0-10); NRBC Flagged by Analyzer 0 % (0-5); Neutrophil # 6.31 X10^3/uL (2.7-7.7); Neutrophil % 83.8 % (47-70); Platelet Count 252 K/mm3 (150-450); RBC Distribution Width CV 12.7 % (11.6-14.6); RBC Distribution Width SD 40.3 fl (35.1-43.9); Red Blood Count 3.82 M/mm3 (4.2-5.4); White Blood Count 7.5 K/mm3 (4.4-11.0)
[2021-04-15 20:55] LABS: Anion Gap 7 (5-15); BUN 13 mg/dL (7-18); BUN/Creat Ratio 23.3 RATIO (10-20); Calcium,Total 8.5 mg/dL (8.5-10.1); Chloride 104 mmol/L (98-107); Creatinine, Serum 0.56 mg/dL (0.55-1.02); EST Glomerular Filtration Rate 112 mL/min (>60); Est Glom Filt Rate - Afr Amer 136 mL/min (>60); Estimated Creatinine Clearance 34.91 ml/min; Glucose 179 mg/dL (74-106); Potassium 3.5 mmol/L (3.5-5.1); Sodium Level 137 mmol/L (136-145)
--- NOTE | 2021-04-15 21:45 | ED.VIS.DYS ---
HPI History of Present Illness Chief Complaint: Shortness of Breath Narrative Narrative: Patient presenting for evaluation secondary to shortness of breath. Patient has a recent history of having a coronavirus infection, this was over 2 weeks ago she was actually admitted to the hospital and discharged with normal oxygenation. Patient states that more recently she has been having increasing issues with shortness of breath and low oxygen at home. Patient states that she has chills associated with this. She reports a cough that is nonproductive. She does still have some nausea but no vomiting. Denies any diarrhea. Patient denies that she has any sort of underlying respiratory disease, she is a non-smoker. Review of systems otherwise negative. [facility] Medical History (Updated 04/15/21 @ 21:[address] Gunnar Schwarz MD) Diverticulitis GERD (gastroesophageal reflux disease) Hyperlipidemia Hypothyroidism Non-smoker Osteoarthritis Palpitations Syncope Home Medications esomeprazole magnesium 40 mg PO DAILY 05/09/13 [History Last Taken 04/10/21] fluticasone propionate 2 spray NASAL DAILY 05/09/13 [History Last Taken 04/10/21] aspirin 81 mg tablet,delayed release 81 mg PO QDAY 12/07/17 [History Last Taken 04/10/21] calcium carbonate 600 mg(1,500 mg)-vitamin D3 800 unit chewable tablet 1 tab PO QDAY tab 12/07/17 [History Last Taken 04/09/21] cholecalciferol (vitamin D3) 25 mcg (1,000 unit) tablet 1,000 unit PO QDAY 12/07/17 [History Last Taken 04/10/21] fexofenadine 180 mg tablet 180 mg PO QDAY PRN 12/07/17 [History Last Taken 04/10/21] duloxetine 20 mg capsule,delayed release 20 mg PO QDAY cap 12/10/17 [History Last Taken 04/10/21] trazodone 50 mg tablet 50 mg PO QHS tab 12/10/17 [History Last Taken 04/09/21] atenolol 25 mg tablet 37.5 mg PO DAILY tab 04/10/20 [History Last Taken 04/10/21] celecoxib 100 mg capsule 200 mg PO BID cap 04/10/20 [History Last Taken 04/10/21] levothyroxine 150 mcg tablet 150 mcg PO DAILY 04/10/20 [History Last Taken 04/10/21] ondansetron 4 mg PO Q8H PRN PRN #10 tab 04/08/21 [Rx Last Taken 04/10/21] albuterol sulfate 2 puff INHALATION Q4H PRN PRN 30 Days #1 g 04/11/21 [Rx Last Taken Unknown] dexamethasone 6 mg PO DAILY 8 Days #24 tab 04/11/21 [Rx Last Taken Unknown] guaifenesin [Mucus Relief ER] 600 mg PO BID 7 Days #14 tab 04/11/21 [Rx Last Taken Unknown] Allergy/AdvReac Type Severity Reaction Status Date / Time ezetimibe [From Zetia] AdvReac Intermediate GI Verified 04/08/21 19:50 upset/diarrhea Sulfa (Sulfonamide AdvReac Intermediate Other Verified 04/08/21 19:50 Antibiotics) [id number] Reductase AdvReac Other Verified 04/08/21 19:50 Inhibitor Family History Father Sudden cardiac , Onset Age: 77 Mother CVA (cerebral vascular accident) Atrial fibrillation Sister CAD (coronary artery disease) Myocardial infarction Surgical History History of arthroplasty of left knee History of bilateral breast reduction surgery History of carpal tunnel surgery History of laparoscopic cholecystectomy History of partial thyroidectomy History of total hysterectomy History of total right knee replacement Social History Smoking Status: Never smoker alcohol intake: never ROS ROS ED Constitutional Constitutional ED: Reports chills and fever(s) ENT ENT ED: Denies rhinorrhea Cardiovascular Cardiovascular: Denies chest pain Respiratory/Chest Respiratory/Chest: Reports cough and dyspnea Gastrointestinal Gastrointestinal: Reports nausea Genitourinary Genitourinary ED: Denies dysuria or hematuria Musculoskeletal Musculoskeletal: Denies back pain Integumentary Denies rash Neurologic Neurologic: Denies paresthesias or weakness Psychiatric Psychiatric: Denies depression Endocrine Endocrinology: Denies fatigue Allergic/Immunologic Allergic/Immunologic ED: Denies urticaria EXAM Physical Exam Const Vital Signs: 04/15/21 19:46 04/15/21 19:48 04/15/21 20:09 Temperature 97.6 F L 97.6 F L Temperature Source Temporal Temporal Pulse Rate 69 69 Respiratory Rate 17 17 Respiratory Effort Short of Breath Labored Respiratory Depth Normal Blood Pressure 131/47 H 131/47 H Blood Pressure Mean 75 75 Pulse Ox 89 89 Oxygen Delivery Method Room Air Nasal Cannula Nasal Cannula Oxygen Flow Rate (L/min) 2 2 Positive well nourished and well developed Constitutional Narrative: Somewhat listless elderly female not acutely distressed General Appearance ED: well developed and NAD HEENT Reports moist mucous membranes Negative for trauma or tenderness Eyes EOMs intact bilaterally Neck no lymphadenopathy, supple and no JVD Chest Wall inspection of chest normal Resp normal respiratory effort and clear to auscultation bilaterally Cardio regular rate, regular rhythm, no murmurs and peripheral pulses 2+ throughout GI normal to inspection, nondistended, normoactive bowel sounds, non-tender and no masses Palpation: soft Back/Spine normal to inspection Extremity normal to inspection General Extremety ED: Negative for tenderness Neuro oriented x3 and no sensory deficits noted Sensorium / Orientation: alert Motor Exam: strength 5/5 throughout Psych mental status grossly normal Skin no rashes or lesions noted MDM MDM MDM Narrative Medical decision making narrative: Patient presented secondary to worsening shortness of breath. She was hypoxic in triage down to 89% was placed on supplemental oxygen. IV was status laboratory studies were obtained patient actually shows a normal white blood cell counts but a increased amount of immature granulocytes neutrophils potentially indicative of a bacterial infection. Patient's chest x-ray by my review demonstrates infiltrates right being worse than the left. Chemistry was otherwise unremarkable. Patient at this point is over 2 weeks out from her coronavirus infection and has a new onset of shortness of breath with hypoxia. Patient I believe has bacterial pneumonia at this point should be treated with Rocephin and azithromycin will be admitted for further treatment. Lab Data Labs: Laboratory Results - last 24 hr 04/15/21 04/15/21 20:20 20:20 WBC 7.5 RBC 3.82 L Hgb 11.2 L Hct 33.7 L MCV 88.2 MCH 29.3 MCHC 33.2 RDW Std Deviation 40.3 RDW Coeff of Moses 12.7 Plt Count 252 MPV 10.1 Immature Gran % (Auto) 2.000 H Neut % (Auto) 83.8 H Lymph % (Auto) 9.6 L [place] % (Auto) 4.5 Eos % (Auto) 0.0 Baso % (Auto) 0.1 Absolute Neuts (auto) 6.3 Absolute Lymphs (auto) 0.72 L Nucleated RBC % 0 Sodium 137 Potassium 3.5 Chloride 104 Carbon Dioxide 26.0 Anion Gap 7 BUN 13 Creatinine 0.56 Estim Creat Clear Calc 34.91 Est GFR (MDRD) Af Amer 136 Est GFR (MDRD) Non-Af 112 BUN/Creatinine Ratio 23.3 H Glucose 179 H Calcium 8.5 Radiography Diagnostic Testing: Radiology Impression Chest X-Ray 04/15/21 20:18 IMPRESSION: Mild infiltrates in the mid and lower lungs which have progressed since prior study and are worrisome for pneumonia. ASSESSMENT: ABNORMAL report - There are abnormal findings in this report which may be related or unrelated to the reason for the exam. Electronically Signed: Jose L Daniels MD at 21:17 EDT Tel , Service support , Discharge Plan Triage Chief Complaint: Shortness of Breath ED Provider: Gunnar Schwarz Dx/Rx/DC Orders Clinical Impression: Respiratory failure with hypoxia, Pneumonia Prescriptions: No Action duloxetine [Cymbalta] 20 mg capsule,delayed release(DR/EC) 20 mg PO QDAY RF: 0 calcium carbonate 600 mg(1,500 mg)-vitamin D3 800 unit chewable tablet 600 mg (1,500 mg)-800 unit tablet,chewable 1 tab PO QDAY RF: 0 cholecalciferol (vitamin D3) 1,000 unit tablet 1,000 unit PO QDAY RF: 0 aspirin 81 mg tablet,delayed release (DR/EC) 81 mg PO QDAY RF: 0 fexofenadine [Afshan Allergy] 180 mg tablet 180 mg PO QDAY PRN (Reason: Allergies) RF: 0 trazodone 50 mg tablet 50 mg PO QHS RF: 0 levothyroxine 150 mcg tablet 150 mcg PO DAILY RF: 0 fluticasone propionate 1 SPRAY spray,suspension 2 spray NASAL DAILY RF: 0 esomeprazole magnesium 40 MG capsule 40 mg PO DAILY RF: 0 celecoxib 100 mg capsule 200 mg PO BID RF: 0 atenolol 25 mg tablet 37.5 mg PO DAILY RF: 0 ondansetron 4 MG tablet 4 mg PO Q8H PRN PRN (Reason: Nausea) Qty: 10 RF: 0 dexamethasone 2 mg Tablet 6 mg PO DAILY 8 Days Qty: 24 RF: 0 albuterol sulfate 90 mcg/actuation Hfa Aerosol Inhaler 2 puff inhalation Q4H PRN PRN (Reason: sob/wheezing) 30 Days Qty: 1 RF: 0 guaifenesin [Mucus Relief ER] 600 mg Tablet Extended Release 12hr 600 mg PO BID 7 Days Qty: 14 RF: 0 Primary Care Provider: Stephane Rhodes Referrals: Stephane Rhodes MD [Primary Care Provider] - Disposition Disposition: Acute Care Hospital [facility]
--- NOTE | 2021-04-15 21:54 | PCM.HP.STD ---
HPI - General General Date of Admission: 04/15/21 Date of Service: 04/15/21 Chief Complaint: Dyspnea, worsening with cough, chills HPI Narrative The patient is a 76 y/o F w/ PMHx: Hx Palpitations, Anxiety and Depression, HLD, Hypothyroidism s/p partial thyroidectomy, GERD, Obesity, OA, recently admitted 04/10/21-04/11/21 following treatment for acute hypoxia secondary to acute COVID-19 with associated electrolyte disturbances discharged on Decadron regimen with no oxygen requirement at that time with history of reported symptoms ongoing at that time x 7 days, also Covid positive with unvaccinated status who now represents to the [facility] ED on 04/15/21 with worsening dry cough and dyspnea over the last 2-3 days, although reports she initially did feel improved from recent discharge the Wednesday prior without any recurrent fevers but chills reported. Patient's is currently in the ICU intubated with Covid, also unvaccinated status. Patient during the course of her Covid illness reports fever, chills, headache, sore throat, decreased sense of taste and smell, cough, dyspnea, nausea, emesis, diarrhea, abdominal cramping, body aches, fatigue, malaise and poor oral intake. Most of the symptoms have improved except continued altered taste and smell, occasional loose stool, fatigue, malaise, worsened recent dyspnea and ongoing cough work-up in the ED included T 97.6, heart rate 69, BP 131/47, respiratory rate ranging 17-20, initially 89% on room air however improved to 96% on 2 L nasal cannula, CBC with WBC 7.5, hemoglobin 11.2, platelets 252 with mild increased immature granulocytes and lymphopenia ongoing, BMP unremarkable aside glucose 179, chest x-ray with mild infiltrates in the mid and lower lungs which are progressed since prior study. In the ED patient ministered Rocephin and azithromycin. [facility] Medical History (Updated 04/15/21 @ 22:[address] Isabella Crum MD) Diverticulitis GERD (gastroesophageal reflux disease) Hyperlipidemia Hypothyroidism Non-smoker Osteoarthritis Palpitations Syncope Home Medications esomeprazole magnesium 40 mg PO DAILY 05/09/13 [History Last Taken 04/10/21] fluticasone propionate 2 spray NASAL DAILY 05/09/13 [History Last Taken 04/10/21] aspirin 81 mg tablet,delayed release 81 mg PO QDAY 12/07/17 [History Last Taken 04/10/21] calcium carbonate 600 mg(1,500 mg)-vitamin D3 800 unit chewable tablet 1 tab PO QDAY tab 12/07/17 [History Last Taken 04/09/21] cholecalciferol (vitamin D3) 25 mcg (1,000 unit) tablet 1,000 unit PO QDAY 12/07/17 [History Last Taken 04/10/21] fexofenadine 180 mg tablet 180 mg PO QDAY PRN 12/07/17 [History Last Taken 04/10/21] duloxetine 20 mg capsule,delayed release 20 mg PO QDAY cap 12/10/17 [History Last Taken 04/10/21] trazodone 50 mg tablet 50 mg PO QHS tab 12/10/17 [History Last Taken 04/09/21] atenolol 25 mg tablet 37.5 mg PO DAILY tab 04/10/20 [History Last Taken 04/10/21] celecoxib 100 mg capsule 200 mg PO BID cap 04/10/20 [History Last Taken 04/10/21] levothyroxine 150 mcg tablet 150 mcg PO DAILY 04/10/20 [History Last Taken 04/10/21] ondansetron 4 mg PO Q8H PRN PRN #10 tab 04/08/21 [Rx Last Taken 04/10/21] albuterol sulfate 2 puff INHALATION Q4H PRN PRN 30 Days #1 g 04/11/21 [Rx Last Taken Unknown] dexamethasone 6 mg PO DAILY 8 Days #24 tab 04/11/21 [Rx Last Taken Unknown] guaifenesin [Mucus Relief ER] 600 mg PO BID 7 Days #14 tab 04/11/21 [Rx Last Taken Unknown] Allergy/AdvReac Type Severity Reaction Status Date / Time ezetimibe [From Zetia] AdvReac Intermediate GI Verified 04/08/21 19:50 upset/diarrhea Sulfa (Sulfonamide AdvReac Intermediate Other Verified 04/08/21 19:50 Antibiotics) Xxmmvsu-Csn-Bef Reductase AdvReac Other Verified 04/08/21 19:50 Inhibitor Family History Father Sudden cardiac , Onset Age: 77 Mother CVA (cerebral vascular accident) Atrial fibrillation Sister CAD (coronary artery disease) Myocardial infarction Surgical History History of arthroplasty of left knee History of bilateral breast reduction surgery History of carpal tunnel surgery History of laparoscopic cholecystectomy History of partial thyroidectomy History of total hysterectomy History of total right knee replacement Social History (Updated 04/15/21 @ 22:[address] Isabella Crum MD) household members: spouse Smoking Status: Never smoker alcohol intake: never substance use type: does not use ROS ROS Narrative Admission Review of Systems: CONSTITUTIONAL: No weight loss, + fever, chills, weakness or fatigue. HEENT: + Sore throat, headache. Eyes: No visual loss, blurred vision, double vision or yellow sclerae. Ears, Nose, Throat: No hearing loss, sneezing, congestion, runny nose. SKIN: No rash or itching, lesions, wounds. CARDIOVASCULAR: No chest pain, chest pressure or chest discomfort, palpitations, edema, orthopnea, syncopal events. RESPIRATORY: + shortness of breath, cough without sputum, No wheezing, hemoptysis. GASTROINTESTINAL: + anorexia, nausea, vomiting, diarrhea, abdominal pain, No melena, BRBPR. GENITOURINARY: No dysuria, frequency, urgency or retention. NEUROLOGICAL: + headache, No dizziness, syncope, paralysis, ataxia, numbness or tingling in the extremities, focal weakness, change in bowel or bladder control, seizure. MUSCULOSKELETAL: + muscle, back pain, joint pain or stiffness. HEMATOLOGIC: No anemia, bleeding or bruising. LYMPHATICS: No enlarged nodes. No history of splenectomy. PSYCHIATRIC: + history of depression or anxiety. ENDOCRINOLOGIC: No reports of sweating, cold or heat intolerance. No polyuria or polydipsia. ALLERGIES: + history of rhinitis. Vital Signs Vital Signs Vital Signs: 04/15/21 19:46 04/15/21 19:48 04/15/21 20:09 Temperature 97.6 F L 97.6 F L Temperature Source Temporal Temporal Pulse Rate 69 69 Respiratory Rate 17 17 Respiratory Effort Short of Breath Labored Respiratory Depth Normal Blood Pressure 131/47 H 131/47 H Blood Pressure Mean 75 75 Pulse Ox 89 89 Oxygen Delivery Method Room Air Nasal Cannula Nasal Cannula Oxygen Flow Rate (L/min) 2 2 04/15/21 21:50 Temperature Temperature Source Pulse Rate 98 Respiratory Rate 20 H Respiratory Effort Respiratory Depth Blood Pressure 112/53 L Blood Pressure Mean 72 Pulse Ox 96 Oxygen Delivery Method Oxygen Flow Rate (L/min) Weight Weight: 154 lb Body Mass Index (BMI) 30.0 Physical Exam Narrative Physical Examination: General: Awake, alert, oriented x 3 and cooperative, seated upright in the ED bed, fatigued and ill-appearing. Skin: Normal color, normal turgor, no icterus, no cyanosis. HEENT: AT/NC, EOMI, PERRLA, dry MM, no carotid bruits or JVD noted. Lungs: Severely diffusely diminished, greater bases, poor effort, no evidence of any distress, no rales, ronchi or wheezing. Heart: Regular rate and rhythm; no gallop, rub audible. Abdomen: Soft, NTTP, ND, mildly hyperactive distant BS, no HSM. Extremities: No cyanosis, clubbing, or edema. Neurological: Patient awake, alert, oriented as noted, cognitive function intact; pupils equally reactive to light and accommodation, cranial nerves II-XII grossly normal, moving all 4 extremities, no focal deficits, strength moderately to severely global decrease secondary to acute presentation. Psychiatric: Affect appears fatigued, flat, no acute evidence of depressive or anxiety feelings. Results Lab / Micro Data Result Diagrams: 04/15/21 20:20 04/15/21 20:20 Labs: Laboratory Results - last 24 hr 04/15/21 20:20: WBC 7.5, RBC 3.82 L, Hgb 11.2 L, Hct 33.7 L, MCV 88.2, MCH 29.3, MCHC 33.2, RDW Std Deviation 40.3, RDW Coeff of Moses 12.7, Plt Count 252, MPV 10.1, Immature Gran % (Auto) 2.000 H, Neut % (Auto) 83.8 H, Lymph % (Auto) 9.6 L, [place] % (Auto) 4.5, Eos % (Auto) 0.0, Baso % (Auto) 0.1, Absolute Neuts (auto) 6.3, Absolute Lymphs (auto) 0.72 L, Nucleated RBC % 0 04/15/21 20:20: Sodium 137, Potassium 3.5, Chloride 104, Carbon Dioxide 26.0, Anion Gap 7, BUN 13, Creatinine 0.56, Estim Creat Clear Calc 34.91, Est GFR (MDRD) Af Amer 136, Est GFR (MDRD) Non-Af 112, BUN/Creatinine Ratio 23.3 H, Glucose 179 H, Calcium 8.5 Radiology Impression Chest X-Ray 04/15/21 20:18 IMPRESSION: Mild infiltrates in the mid and lower lungs which have progressed since prior study and are worrisome for pneumonia. ASSESSMENT: ABNORMAL report - There are abnormal findings in this report which may be related or unrelated to the reason for the exam. Electronically Signed: Jose L Daniels MD at 21:17 EDT Tel , Service support , Assessment & Plan Assessment/Plan (1) Pneumonia due to COVID-19 virus: (2) Hypoxia: PLAN: The patient is a 76 y/o F w/ PMHx: Hx Palpitations, Anxiety and Depression, HLD, Hypothyroidism s/p partial thyroidectomy, GERD, Obesity, OA, recently admitted 04/10/21-04/11/21 following treatment for acute hypoxia secondary to acute COVID-19 with associated electrolyte disturbances discharged on Decadron regimen with no oxygen requirement at that time who now represents to the [facility] ED on 04/15/21 with worsening dry cough and dyspnea over the last 2-3 days, although reports she initially did feel improved from recent discharge the Wednesday prior without any recurrent fevers but chills reported. 1. Acute Hypoxia with Worsening Appearance Bilateral Pneumonia secondary to Acute Viral Syndrome, COVID-19, questionable possible Superimposed Bacterial Infection: Patient with worsened hypoxia, unable to maintain appropriate saturations, chest x-ray worsened from prior presentation. Of note patient 04/10/21 CTPA w/ no evidence of PE or dissection, ill-defined subpleural ground-glass opacities more prominent in the lung bases. ED concern for possible superimposed bacterial infection with abx therapy administered. Will admit to the [facility] with covid precautions given history of severe hypoxia as would require 20 days technically of isolation, will maintain on oxygen with wean as tolerated to room air, PRN albuterol, HOB, IS parameters w/ pending sputum cultures, respiratory viral panel and urine antigens, will obtain D-dimer, procalcitonin, CRP, CPK, Ferritin, LDH, trop and BNP, continue supportive care including q 2 hour turning including prone given no prone bed availability and judicious hydration, continue decadron regimen. In the ED patient administered IV rocephin and azithromycin, will continue to be cautious pending the labs as noted in case of overlapping bacterial pneumonia. 2. Hyperglycemia: Admission glucose 179, likely secondary to stress response and recent steroid ongoing usage, will obtain hemoglobin A1c to be cautious. 3. Chronic palpitations: We will continue patient atenolol regimen. 4. Anxiety and depression: We will continue patient home duloxetine regimen. 5. Allergic rhinitis: We will temporarily hold fluticasone and fexofenadine given as needed usage, add back if necessary. 6. Hypothyroidism: History of partial thyroidectomy, continue home synthroid regimen. 7. Hyperlipidemia: Not on any regimen with allergies noted to both Zetia and statins, defer to outpatient. 8. GERD: We will continue patient on PPI. 9. DVT prophylaxis: SCDs, Lovenox. 10. CODE status: Patient CHELSEY is her however he is currently intubated in the ICU with Covid and she notes that her secondary is her daughter Rosa and living will is currently in place. Discussed CODE status at length including difference between FULL code, DNR-CCA and DNR-CC status. Following discussions about the differences in these status, requested Full code status. Amenable to airvo and BIPAP prior to intubation. Advanced Care Planning Face to Face Time: 16 minutes. Charges/Coding Visit Charges Inpatient E&M: 57413 Init Hosp L3 Procedures Hospitalists Procedures: 65482 Advncd Care Plan 30 Min
[2021-04-15 22:51] LABS: D-Dimer Quantitative (DVT/PE) 3.34 FEU/ug/m (0.27-0.49)
[2021-04-15 22:52] LABS: Ferritin 468 ng/mL (8-252); LDH 345 U/L (84-246)
[2021-04-15 22:57] LABS: BNP,B-Type NATRIURETIC PEPTIDE 126.8 pg/mL (0-100)
[2021-04-15 22:58] LABS: Procalcitonin 0.06 ng/mL (0.00-0.09)
[2021-04-16] VITALS (13 sets, daily range): BP systolic 124–147; BP diastolic 52–63; PULSE 54–71; RESP 16–18; TEMP 36.5–36.8; O2SAT 92–96
[2021-04-16] MEDS: Atenolol 25 MG Tablet 37.5 MG PO ×2 (01:05→20:37)
[2021-04-16] MEDS: MELATONIN 3 MG TABLET PO (01:06)
[2021-04-16] MEDS: 0.9% Normal Saline 1,000 ML 100 ML IV (01:07)
[2021-04-16] MEDS: traZODone 50 MG Tablet PO ×2 (02:49→20:37)
[2021-04-16 07:00] LABS: Absolute Lymphocyte Count 1.03 X10^3/uL (0.83-4.51); Absolute Neutrophil Count 4.8 X10^3/uL (2.0-7.7); Basophil# 0.01 X10^3/uL; Basophil% 0.2 % (0-1); Eosinophil# 0.01 X10^3/uL; Eosinophils% 0.2 % (0-5); Hematocrit 31.8 % (37-47); Hemoglobin 10.7 g/dL (12.0-15.0); Lymphocyte # 1.03 X10^3/ul (0.83-4.51); Mean Corp Hgb Conc 33.6 g/dL (32-36); Mean Corpuscular Hgb 29.9 pg (27.0-32.0); Mean Corpuscular Volume 88.8 fL (81-99); Mean Platelet Vol. 10.6 fl (6.2-12.0); Monocyte% 6.2 % (0-10); NRBC Flagged by Analyzer 0 % (0-5); Neutrophil % 74.3 % (47-70); POSITIVE MORPHOLOGY YES; Platelet Count 240 K/mm3 (150-450); RBC Distribution Width CV 12.7 % (11.6-14.6); RBC Distribution Width SD 41.1 fl (35.1-43.9); Red Blood Count 3.58 M/mm3 (4.2-5.4); White Blood Count 6.5 K/mm3 (4.4-11.0)
[2021-04-16 07:02] LABS: Differential Indicated SCAN CRITERIA MET
[2021-04-16 07:45] LABS: Hemoglobin A1c 6.6 % (3.8-5.6)
[2021-04-16 07:46] LABS: ALB/GLOB Ratio 0.6 RATIO (0.9-2.4); AST(SGOT) 25 U/L (15-37); Alanine Aminotransfer ALT/SGPT 30 U/L (13-56); Albumin, Serum 2.3 g/dL (3.2-5.0); Alkaline Phosphatase 56 U/L (45-117); Anion Gap 7 (5-15); BUN 11 mg/dL (7-18); BUN/Creat Ratio 22.6 RATIO (10-20); Calcium,Total 8.1 mg/dL (8.5-10.1); Chloride 110 mmol/L (98-107); Creatinine, Serum 0.49 mg/dL (0.55-1.02); EST Glomerular Filtration Rate 132 mL/min (>60); Est Glom Filt Rate - Afr Amer 160 mL/min (>60); Estimated Creatinine Clearance 34.91 ml/min; Globulin 3.9 g/dL (2.2-4.2); Glucose 136 mg/dL (74-106); Potassium 3.7 mmol/L (3.5-5.1); Protein, Total 6.2 g/dL (6.4-8.2); Sodium Level 142 mmol/L (136-145)
--- NOTE | 2021-04-16 07:52 | CT_ITS ---
STUDY: CTA CHEST REASON FOR EXAM: Female, 76 years old. Elevated D-dimer, COVID 04/04/21 RADIATION DOSAGE (If Supplied By Facility): CTDIvol = ( 12.55 ) mGy, DLP = ( 398.04 ) mGycm TECHNIQUE: The examination was performed with the intravenous administration of IV 75mL Isovue-370. Post-processing of the angiographic images was performed, with multiplanar reformation and 3D reconstruction. Individualized dose optimization techniques were used for this CT. COMPARISON: Comparison is made with prior study discussed 04/10/2021. FINDINGS: Normal enhancement of the main pulmonary artery and right and left pulmonary arteries. Normal enhancement of the bilateral peripheral pulmonary arteries. There is no demonstrated pulmonary embolism. Normal thoracic aorta and visualized great vessels. There is no demonstrated aortic dissection. There are calcifications of the coronary arteries. Normal mediastinum. Slightly enlarged right hilar lymph node. Normal visualized trachea and bronchi. The lungs are well expanded. Once again, there is evidence of diffuse bilateral patchy alveolar airspace disease involving both lungs worse at the right lung base. Since prior study, there has been a progression. Normal pleura. Normal chest wall structures. Normal osseous structures. Normal visualized upper abdomen. CT/CTA Chest W/WO Contrast IMPRESSION: No evidence of pulmonary embolism. Progressive bilateral alveolar pulmonary infiltrates. Electronically Signed: Jose Lopez MD at 8:53 EDT , Service support ,
--- NOTE | 2021-04-16 07:53 | PN.HOSP_ITS ---
Subjective Subjective Patient was seen and examined. No acute events overnight. Objective Data Objective Data Vital Signs: Vital Signs Temp Pulse Resp BP Pulse Ox 97.7 F L 54 L 18 141/63 H 96 04/16/21 02:57 04/16/21 05:01 04/16/21 02:57 04/16/21 02:57 04/16/21 02:57 Oxygen Flow Rate (L/min) 2 Oxygen Delivery Method Nasal Cannula Weight: 71.123 kg Body Mass Index (BMI) 30.5 Intake & Output: Intake and Output for Last 24 Hours 04/14/21 04/15/21 04/16/21 23:59 23:59 23:59 Intake Total 50 / 50 255 / 255 Balance 50 / 50 255 / 255 Lab / Micro Data Result Diagrams: 04/16/21 06:10 04/16/21 06:10 Labs: Laboratory Results - last 24 hr 04/15/21 20:20: WBC 7.5, RBC 3.82 L, Hgb 11.2 L, Hct 33.7 L, MCV 88.2, MCH 29.3, MCHC 33.2, RDW Std Deviation 40.3, RDW Coeff of Moses 12.7, Plt Count 252, MPV 10.1, Immature Gran % (Auto) 2.000 H, Neut % (Auto) 83.8 H, Lymph % (Auto) 9.6 L , [place] % (Auto) 4.5, Eos % (Auto) 0.0, Baso % (Auto) 0.1, Absolute Neuts (auto) 6.3, Absolute Lymphs (auto) 0.72 L, Nucleated RBC % 0 04/15/21 20:20: Sodium 137, Potassium 3.5, Chloride 104, Carbon Dioxide 26.0, Anion Gap 7, BUN 13, Creatinine 0.56, Estim Creat Clear Calc 34.91, Est GFR (MDRD) Af Amer 136, Est GFR (MDRD) Non-Af 112, BUN/Creatinine Ratio 23.3 H, Glucose 179 H, Calcium 8.5 04/15/21 20:20: Ferritin 468 H, Lactate Dehydrogenase 345 H, C-React Prot Ext Range 41.90 H 04/15/21 20:20: B-Natriuretic Peptide 126.8 H 04/15/21 20:20: Procalcitonin 0.06 04/15/21 20:22: D-Dimer Quant (PE/DVT) 3.34 H* 04/16/21 06:10: WBC 6.5, RBC 3.58 L, Hgb 10.7 L, Hct 31.8 L, MCV 88.8, MCH 29.9, MCHC 33.6, RDW Std Deviation 41.1, RDW Coeff of Moses 12.7, Plt Count 240, MPV 10.6, Immature Gran % (Auto) 3.100 H, Neut % (Auto) 74.3 H, Lymph % (Auto) 16.0 L, [place] % (Auto) 6.2, Eos % (Auto) 0.2, Baso % (Auto) 0.2, Absolute Neuts (auto) 4.8, Absolute Lymphs (auto) 1.03, Nucleated RBC % 0 04/16/21 06:10: Sodium 142, Potassium 3.7, Chloride 110 H, Carbon Dioxide 25.0, Anion Gap 7, BUN 11, Creatinine 0.49 L, Estim Creat Clear Calc 34.91, Est GFR (MDRD) Af Amer 160, Est GFR (MDRD) Non-Af 132, BUN/Creatinine Ratio 22.6 H, Glucose 136 H, Calcium 8.1 L, Total Bilirubin 0.30, AST 25, ALT 30, Alkaline Phosphatase 56, Total Protein 6.2 L, Albumin 2.3 L, Globulin 3.9, Albumin/Globulin Ratio 0.6 L 04/16/21 06:10: Hemoglobin A1c 6.6 H Micro: Microbiology 04/16/21 01:00 Urine, Clean Catch Legionella Antigen - Final 04/16/21 01:00 Urine, Clean Catch Streptococcus pneumoniae Antigen (M - Final Radiography Diagnostic Testing: Radiology Impression Chest X-Ray 04/15/21 20:18 IMPRESSION: Mild infiltrates in the mid and lower lungs which have progressed since prior study and are worrisome for pneumonia. ASSESSMENT: ABNORMAL report - There are abnormal findings in this report which may be related or unrelated to the reason for the exam. Electronically Signed: Jose L Daniels MD at 21:17 EDT Tel , Service support , Physical Exam Narrative Physical exam: General: Alert, Oriented x3, Cooperative, No apparent distress, Well developed HEENT: Atraumatic Oral: Moist Mucosa Neck: Supple Lungs: Clear to auscultation Cardiovascular: HS I+II, regular, no murmurs Abdomen: Bowel Sounds Present, Soft, Non Tender Extremities: No edema Skin: No rashes, No breakdown Neurological: Grossly intact Psych/Mental Status: Appropriate Assessment & Plan Assessment/Plan (1) Pneumonia due to COVID-19 virus: (2) Hypoxia: (3) Pneumonia: QUALIFIERS: Laterality: bilateral Lung location: lower lobe of lung Pneumonia type: due to unspecified organism Qualified Code(s): J18.9 - Pneumonia, unspecified organism (4) Diabetes mellitus, type 2: QUALIFIERS: Diabetes mellitus complication status: without complication Diabetes mellitus long distance operator insulin use: without long distance operator use Qualified Code(s): E11.9 - Type 2 diabetes mellitus without complications PLAN: 1. Acute hypoxia likely secondary to bacterial pneumonia vs atelectasis in a patient with recent Covid Patient is currently on 2 L of oxygen, continue to wean off oxygen, encourage use of incentive spirometer 2. Acute bacterial pneumonia vs atelectasis in a patient with recent Covid Admitting chest x-ray showed infiltrates in the mid and lower lungs which are progressed compared to previous Previous chest x-ray on 04/08/21 showed only intermediate right basilar opacity Recently discharged on 04/11/21 with hypoxia secondary to acute COVID-19 pneumonia. Readmitted on and started on IV ceftriaxone and azithromycin, D-dimer, ferritin, CRP, LDH are elevated CTA of the chest done on 04/10/21 showed no acute PE. CTA of chest (04/16/21) showed no acute PE Continue on Decadron(stop date 04/19/21) We will decrease IV fluids to 75 mils per hour to prevent fluid overload 3. Type II DM, newly diagnosed, HbA1c 6.6, likely secondary to recent steroid use/stress-induced Will start on insulin sliding scale, will be monitored 4. Rest of chronic medical conditions including hypothyroidism, chronic palpitations, hyperlipidemia, GERD, anxiety/depression, allergic rhinitis remained stable Charges/Coding Visit Charges Inpatient E&M: 75603 Subs Hosp L3
[2021-04-16] MEDS: DULoxetine Hcl 20 MG Capsule PO (10:23)
[2021-04-16] MEDS: Aspirin E.C. 81 MG Tablet PO (10:23)
[2021-04-16] MEDS: Pantoprazole Sodium 40 MG Tablet PO (10:23)
[2021-04-16] MEDS: dexAMETHasone 2 MG TABLET 6 MG PO (10:24)
[2021-04-16] MEDS: Enoxaparin 30 MG/0.3 ML Syringe SC ×2 (10:25→20:36)
[2021-04-16] MEDS: Levothyroxine 150 MCG Tablet PO (10:31)
--- NOTE | 2021-04-16 11:10 | CASEMGMT ---
RN CM [employer] CM to room to meet with patient for initial transition planning/care coordination assessment. RN CM introduced self and role at [facility].? Pt voices understanding and consents to assessment at this time.? Pt lying in bed in no distress at this time.? Pt is A/O x4 and answers all questions appropriately.?? Care providers, pharmacy, and demographics verified/updated at this time. PCP: Dr Rhodes Specialists: Dr Jc--cardiology, Dr Phill Eden @ [facility] for back surgery Preferred Pharmacy: [facility] Retail Insurance: [employer] Prescription Benefit:? Yes LNOK: , [place]; Dtr, Rosa Zayas; Son, [place] LW/DPOA: Pt has LW/DPOA and it is on file at [facility]. Her DPOA is her [place]. Living Arrangements: Lives w/her in 1 1/2 story home w/4 steps to enter. Pt is currently hospitalized at [facility]. Pt is independent w/ADL's and IADL's. Children live nearby and have been bringing groceries/supplies as needed. Transportation: Pt states drives self and states no transportation concerns at this time.? DME: ? States has the following DME:? shower chair, rails/grab bars, hand held shower, cane--uses PRN, rollator--uses for long distances ?Pt states no need for further DME at this time.? HHC/SNF: No history of either. Denies need for HHC. This is patient's second admission for COVID. Pt was on the phone speaking with her . Pt states no concerns with going home at time of dc. Pt states no further concerns/needs. CM to follow. Advised pt to ask CM if any further question/concerns/needs arise, voices understanding. Pt Goal: Home PLAN: ?Home
[2021-04-16 12:51] LABS: Bedside Glucose 106 mg/dL (70-110)
--- NOTE | 2021-04-16 15:57 | CASEMGMT ---
Social Work Note Per cut off sawyer questions, pt has completed HCPOA and LW and provided documents to [facility]. SW reviewed chart. Both HCPOA and LW are on file. SW printed off documents and placed on pt's chart. Vivi Malave PATIENT FINANCIAL COUNSELOR, BILLET ASSEMBLER
[2021-04-16] MEDS: Insulin Lispro 100 UNIT/ML INSULN.PEN SC ×2 (17:07→20:36)
[2021-04-16 17:26] LABS: Bedside Glucose 215 mg/dL (70-110)
[2021-04-16] MEDS: 0.9% Saline Lock 10 ML Syringe IV (20:38)
[2021-04-16] MEDS: Ceftriaxone 1 GM/50 ML BAG IV (20:38)
[2021-04-16 20:46] LABS: Bedside Glucose 205 mg/dL (70-110)
[2021-04-16] MEDS: Acetaminophen 325 MG Tablet 650 MG PO (23:14)
[2021-04-17] VITALS (7 sets, daily range): BP systolic 131–142; BP diastolic 52–58; PULSE 47–69; RESP 16–18; TEMP 36.7–36.8; O2SAT 93–98
[2021-04-17] MEDS: Acetaminophen 325 MG Tablet 650 MG PO (05:01)
[2021-04-17] MEDS: Levothyroxine 150 MCG Tablet PO (05:02)
[2021-04-17 06:50] LABS: Bedside Glucose 119 mg/dL (70-110)
[2021-04-17 06:58] LABS: Absolute Lymphocyte Count 1.53 X10^3/uL (0.83-4.51); Absolute Neutrophil Count 5.8 X10^3/uL (2.0-7.7); Basophil# 0.02 X10^3/uL; Basophil% 0.2 % (0-1); Eosinophil# 0.04 X10^3/uL; Eosinophils% 0.5 % (0-5); Hematocrit 32.3 % (37-47); Hemoglobin 10.6 g/dL (12.0-15.0); Lymphocyte # 1.53 X10^3/ul (0.83-4.51); Mean Corp Hgb Conc 32.8 g/dL (32-36); Mean Corpuscular Hgb 29.7 pg (27.0-32.0); Mean Corpuscular Volume 90.5 fL (81-99); Mean Platelet Vol. 10.5 fl (6.2-12.0); Monocyte# 0.71 X10^3/uL; Monocyte% 8.3 % (0-10); NRBC Flagged by Analyzer 0 % (0-5); Neutrophil # 5.82 X10^3/uL (2.7-7.7); Neutrophil % 68.4 % (47-70); POSITIVE MORPHOLOGY YES; Platelet Count 270 K/mm3 (150-450); RBC Distribution Width CV 12.6 % (11.6-14.6); RBC Distribution Width SD 41.5 fl (35.1-43.9); Red Blood Count 3.57 M/mm3 (4.2-5.4); White Blood Count 8.5 K/mm3 (4.4-11.0)
[2021-04-17 07:06] LABS: Differential Indicated SCAN CRITERIA MET
[2021-04-17 07:14] LABS: Atypical Lymphocyte 1+ %
[2021-04-17 07:27] LABS: ALB/GLOB Ratio 0.6 RATIO (0.9-2.4); AST(SGOT) 23 U/L (15-37); Alanine Aminotransfer ALT/SGPT 32 U/L (13-56); Albumin, Serum 2.2 g/dL (3.2-5.0); Alkaline Phosphatase 52 U/L (45-117); Anion Gap 5 (5-15); BUN 19 mg/dL (7-18); BUN/Creat Ratio 34.2 RATIO (10-20); Calcium,Total 8.5 mg/dL (8.5-10.1); Chloride 106 mmol/L (98-107); Creatinine, Serum 0.56 mg/dL (0.55-1.02); EST Glomerular Filtration Rate 113 mL/min (>60); Est Glom Filt Rate - Afr Amer 137 mL/min (>60); Estimated Creatinine Clearance 34.91 ml/min; Glucose 122 mg/dL (74-106); Potassium 3.5 mmol/L (3.5-5.1); Protein, Total 6.2 g/dL (6.4-8.2); Sodium Level 138 mmol/L (136-145)
[2021-04-17] MEDS: dexAMETHasone 2 MG TABLET 6 MG PO (10:31)
[2021-04-17] MEDS: Aspirin E.C. 81 MG Tablet PO (10:31)
[2021-04-17] MEDS: DULoxetine Hcl 20 MG Capsule PO (10:31)
[2021-04-17] MEDS: Enoxaparin 30 MG/0.3 ML Syringe SC (10:31)
[2021-04-17] MEDS: Pantoprazole Sodium 40 MG Tablet PO (10:32)
--- NOTE | 2021-04-17 10:54 | CASEMGMT ---
Pt did not qualify for home O2.
--- NOTE | 2021-04-17 11:56 | PCM.DC ---
Discharge Instructions Diet Discharge Diet: 2000 Calorie Control Diet Activity Discharge Activity: Return to Normal Activity Follow Up Care Test Results: Test results from this visit will be discussed in further detail at your follow-up appointment, if applicable. Discharge Plan Admission Admit Date/Time: 04/15/21 22:03 Primary Reason for Your Visit: Acute COVID-19 pneumonia, bacteria pneumonia Attending Provider: Ileana Dorman Primary Care Provider: Stephane Rhodes Instructions Additional Instructions / Restrictions: Complete your Decadron. Your last dose will be on 04/19/21. Continue to use your incentive spirometer. Take note of your new medications. Continue to monitor your blood glucose closely. Complete your quarantine( 20 days from start of symptoms). You are strongly encouraged to get vaccinated when you complete your quarantine. Discharge Orders/Prescriptions Prescriptions: New metformin 500 mg tablet 500 mg PO BID 30 Days Qty: 60 RF: 0 Continued duloxetine [Cymbalta] 20 mg capsule,delayed release(DR/EC) 20 mg PO QDAY RF: 0 calcium carbonate 600 mg(1,500 mg)-vitamin D3 800 unit chewable tablet 600 mg (1,500 mg)-800 unit tablet,chewable 1 tab PO QDAY RF: 0 cholecalciferol (vitamin D3) 1,000 unit tablet 1,000 unit PO QDAY RF: 0 aspirin 81 mg tablet,delayed release (DR/EC) 81 mg PO QDAY RF: 0 fexofenadine [Afshan Allergy] 180 mg tablet 180 mg PO QDAY PRN (Reason: Allergies) RF: 0 trazodone 50 mg tablet 50 mg PO QHS RF: 0 levothyroxine 150 mcg tablet 150 mcg PO DAILY RF: 0 fluticasone propionate 1 SPRAY spray,suspension 2 spray NASAL DAILY RF: 0 esomeprazole magnesium 40 MG capsule 40 mg PO DAILY RF: 0 atenolol 25 mg tablet 37.5 mg PO DAILY RF: 0 ondansetron 4 MG tablet 4 mg PO Q8H PRN PRN (Reason: Nausea) Qty: 10 RF: 0 albuterol sulfate 90 mcg/actuation Hfa Aerosol Inhaler 2 puff inhalation Q4H PRN PRN (Reason: sob/wheezing) 30 Days Qty: 1 RF: 0 dexamethasone 2 mg tablet 6 mg PO DAILY RF: 0 guaifenesin [Mucus Relief ER] 600 mg tablet extended release 12hr 600 mg PO BID RF: 0 Discontinued celecoxib 100 mg capsule 200 mg PO BID RF: 0 Other Ambulatory Orders: Glucometer (Routine) Location: None Selected Ordered By: Dr. Ileana Dorman Referrals / Follow Up: Stephane Rhodes MD [Primary Care Provider] - Within 2 Weeks Disposition Disposition (needs filled in before D/C Order can be placed): Home, Self Care
--- NOTE | 2021-04-17 12:23 | DS.PCM_ITS ---
Providers Date of Admission: 04/15/21 Date of Discharge: 04/17/21 Primary Care Physician: Dr. Stephane Rhodes MD Reason For Visit: COVID PNA, HYPOXIA, ? SUPERIMPOSED BACTERIAL Diagnosis Discharge Diagnosis (1) Pneumonia due to COVID-19 virus: Status: Acute Code(s): U07.1 - COVID-19; J12.82 - Pneumonia due to coronavirus disease 2019 (2) Hypoxia: Status: Resolved Code(s): R09.02 - Hypoxemia (3) Pneumonia: Status: Acute Code(s): J18.9 - Pneumonia, unspecified organism Qualifiers: Laterality: bilateral Lung location: lower lobe of lung Pneumonia type: due to unspecified organism Qualified Code(s): J18.9 - Pneumonia, unspecified organism (4) Diabetes mellitus, type 2: Status: Acute Code(s): E11.9 - Type 2 diabetes mellitus without complications Qualifiers: Diabetes mellitus complication status: without complication Diabetes mellitus middle or intermediate [employer] principal insulin use: without snf use Qualified Code(s): E11.9 - Type 2 diabetes mellitus without complications Medications at Discharge Home Medications esomeprazole magnesium 40 mg PO DAILY 05/09/13 fluticasone propionate 2 spray NASAL DAILY 05/09/13 aspirin 81 mg tablet,delayed release 81 mg PO QDAY 12/07/17 calcium carbonate 600 mg(1,500 mg)-vitamin D3 800 unit chewable tablet 1 tab PO QDAY tab 12/07/17 cholecalciferol (vitamin D3) 25 mcg (1,000 unit) tablet 1,000 unit PO QDAY 12/07/17 fexofenadine 180 mg tablet 180 mg PO QDAY PRN 12/07/17 duloxetine 20 mg capsule,delayed release 20 mg PO QDAY cap 12/10/17 trazodone 50 mg tablet 50 mg PO QHS tab 12/10/17 atenolol 25 mg tablet 37.5 mg PO DAILY tab 04/10/20 levothyroxine 150 mcg tablet 150 mcg PO DAILY 04/10/20 ondansetron 4 mg PO Q8H PRN PRN #10 tab 04/08/21 albuterol sulfate 2 puff INHALATION Q4H PRN PRN 30 Days #1 g 04/11/21 dexamethasone 6 mg PO DAILY 04/15/21 guaifenesin [Mucus Relief ER] 600 mg PO BID 04/15/21 metformin 500 mg PO BID 30 Days #60 tab 04/17/21 albuterol sulfate 2 puff INHALATION Q4H PRN #8.5 g 04/18/21 amoxicillin-pot clavulanate [Augmentin] 1 tab PO BID 5 Days #10 tab 04/18/21 Hospital Course Operations None Procedures None Summary of Care Provided Minutes Spent on Discharge: 50 Hospital Course: 76-year-old female with past medical history of hypothyroidism, recently discharged on 04/11/21 after admission with acute COVID-19 pneumonia with hypoxia. Patient did not require oxygen at the time of being discharged. She was discharged on Decadron. She went home and was feeling well and started feeling short of breath. She noticed that her pulse ox was low in the 80s. Her is currently admitted to ICU with Covid. She came back to the hospital and was found to be hypoxic at 89% on room air. She improved to 96% on 2 L. Chest x-ray has showed infiltrates in the mid and lower lungs which are progressed compared to previous. She was started on IV Rocephin and azithromycin with improvement. Urine Legionella and streptococcal antigen was negative. Respiratory panel was also negative. Patient improved on the IV antibiotics. She was found to be without oxygen on the day of discharge. She was discharged home to complete her Decadron and 5 more days of Augmentin making 1 week. During this hospital stay, patient was found to have high blood sugars, believed to be secondary to a steroid. Patient stated that she was borderline diabetic. Her HbA1c was found to be 6.6. She was managed in the hospital on insulin sliding scale. She was discharged on Metformin. She was given glucometer with strips. She was asked to monitor her blood sugars. She will follow up with her primary care doctor within 1 to 2 weeks. She was strongly advised to get vaccinated. Physical Exam Narrative Physical exam: General: Alert, Oriented x3, Cooperative, No apparent distress, Well developed HEENT: Atraumatic Oral: Moist Mucosa Neck: Supple Lungs: Clear to auscultation Cardiovascular: HS I+II, regular, no murmurs Abdomen: Bowel Sounds Present, Soft, Non Tender Extremities: No edema Skin: No rashes, No breakdown Neurological: Grossly intact Psych/Mental Status: Appropriate Weight / BMI Weight Weight: 71.7 kg Body Mass Index (BMI) 30.5 ABG / Lab / Microbiology Data Result Diagrams: 04/17/21 06:30 04/17/21 06:30 Laboratory: Laboratory Results - last 24 hr 04/16/21 12:31: POC Glucose 106 04/16/21 16:58: POC Glucose 215 H 04/16/21 20:34: POC Glucose 205 H 04/17/21 06:30: WBC 8.5, RBC 3.57 L, Hgb 10.6 L, Hct 32.3 L, MCV 90.5, MCH 29.7, MCHC 32.8, RDW Std Deviation 41.5, RDW Coeff of [place] 12.6, Plt Count 270, MPV 10.5, Immature Gran % (Auto) 4.600 H, Neut % (Auto) 68.4, Lymph % (Auto) 18.0 L, [place] % (Auto) 8.3, Eos % (Auto) 0.5, Baso % (Auto) 0.2, Absolute Neuts (auto) 5.8, Absolute Lymphs (auto) 1.53, Nucleated RBC % 0, Atypical Lymphocytes 1+ 04/17/21 06:30: Sodium 138, Potassium 3.5, Chloride 106, Carbon Dioxide 27.0, Anion Gap 5, BUN 19 H, Creatinine 0.56, Estim Creat Clear Calc 34.91, Est GFR (MDRD) Af Amer 137, Est GFR (MDRD) Non-Af 113, BUN/Creatinine Ratio 34.2 H, Glucose 122 H, Calcium 8.5, Total Bilirubin 0.40, AST 23, ALT 32, Alkaline Phosphatase 52, Total Protein 6.2 L, Albumin 2.2 L, Globulin 4.0, [place] min/Globulin Ratio 0.6 L 04/17/21 06:33: POC Glucose 119 H Microbiology: Microbiology 04/16/21 00:55 Mucosa - Nasopharyngeal Respiratory Panel (PCR) - Final 04/16/21 01:00 Urine, Clean Catch Legionella Antigen - Final 04/16/21 01:00 Urine, Clean Catch Streptococcus pneumoniae Antigen (M - Final D/C Instructions Discharge Diet: 2000 Calorie Control Diet Meaningful Use Info Meaningful Use Diagnoses (Choose all that apply): None applicable Discharge Plan Admission Admit Date/Time: 04/15/21 22:03 Primary Reason for Your Visit: Acute COVID-19 pneumonia, bacteria pneumonia Attending Provider: Ileana Dorman Primary Care Provider: Stephane Rhodes Instructions Additional Instructions / Restrictions: Complete your Decadron. Your last dose will be on 04/19/21. Continue to use your incentive spirometer. Take note of your new medications. Continue to monitor your blood glucose closely. Complete your quarantine( 20 days from start of sy mptoms). You are strongly encouraged to get vaccinated when you complete your quarantine. Discharge Orders/Prescriptions Prescriptions: New metformin 500 mg tablet 500 mg PO BID 30 Days Qty: 60 RF: 0 amoxicillin-pot clavulanate [Augmentin] 875-125 mg tablet 1 tab PO BID 5 Days Qty: 10 RF: 0 albuterol sulfate 90 mcg/actuation HFA aerosol inhaler 2 puff inhalation Q4H PRN (Reason: shortness of breath or wheezing) Qty: 8.5 RF: 0 Continued duloxetine [Cymbalta] 20 mg capsule,delayed release(DR/EC) 20 mg PO QDAY RF: 0 calcium carbonate 600 mg(1,500 mg)-vitamin D3 800 unit chewable tablet 600 mg (1,500 mg)-800 unit tablet,chewable 1 tab PO QDAY RF: 0 cholecalciferol (vitamin D3) 1,000 unit tablet 1,000 unit PO QDAY RF: 0 aspirin 81 mg tablet,delayed release (DR/EC) 81 mg PO QDAY RF: 0 fexofenadine [Afshan Allergy] 180 mg tablet 180 mg PO QDAY PRN (Reason: Allergies) RF: 0 trazodone 50 mg tablet 50 mg PO QHS RF: 0 levothyroxine 150 mcg tablet 150 mcg PO DAILY RF: 0 fluticasone propionate 1 SPRAY spray,suspension 2 spray NASAL DAILY RF: 0 esomeprazole magnesium 40 MG capsule 40 mg PO DAILY RF: 0 atenolol 25 mg tablet 37.5 mg PO DAILY RF: 0 ondansetron 4 MG tablet 4 mg PO Q8H PRN PRN (Reason: Nausea) Qty: 10 RF: 0 albuterol sulfate 90 mcg/actuation Hfa Aerosol Inhaler 2 puff inhalation Q4H PRN PRN (Reason: sob/wheezing) 30 Days Qty: 1 RF: 0 dexamethasone 2 mg tablet 6 mg PO DAILY RF: 0 guaifenesin [Mucus Relief ER] 600 mg tablet extended release 12hr 600 mg PO BID RF: 0 Discontinued celecoxib 100 mg capsule 200 mg PO BID RF: 0 Other Ambulatory Orders: Glucometer (Routine) Location: None Selected Ordered By: Dr. Ileana Dorman Referrals / Follow Up: Stephane Rhodes MD [Primary Care Provider] - Within 2 Weeks Disposition Disposition (needs filled in before D/C Order can be placed): Home, Self Care Charges/Coding Visit Charges Inpatient E&M: 02192 Disch Hosp
--- NOTE | 2021-04-17 13:20 | PHA.DC.MR ---
Pharmacy Service has performed discharge medication reconciliation for this patient. Patient was not counseled [id number] d/t pt being in COVID precautions. Attempted to contact patient x2 without success. Medication list was reviewed. Home Medications esomeprazole magnesium 40 mg PO DAILY 05/09/13 fluticasone propionate 2 spray NASAL DAILY 05/09/13 aspirin 81 mg tablet,delayed release 81 mg PO QDAY 12/07/17 calcium carbonate 600 mg(1,500 mg)-vitamin D3 800 unit chewable tablet 1 tab PO QDAY tab 12/07/17 cholecalciferol (vitamin D3) 25 mcg (1,000 unit) tablet 1,000 unit PO QDAY 12/07/17 fexofenadine 180 mg tablet 180 mg PO QDAY PRN 12/07/17 duloxetine 20 mg capsule,delayed release 20 mg PO QDAY cap 12/10/17 trazodone 50 mg tablet 50 mg PO QHS tab 12/10/17 atenolol 25 mg tablet 37.5 mg PO DAILY tab 04/10/20 levothyroxine 150 mcg tablet 150 mcg PO DAILY 04/10/20 ondansetron 4 mg PO Q8H PRN PRN #10 tab 04/08/21 albuterol sulfate 2 puff INHALATION Q4H PRN PRN 30 Days #1 g 04/11/21 dexamethasone 6 mg PO DAILY 04/15/21 guaifenesin [Mucus Relief ER] 600 mg PO BID 04/15/21 metformin 500 mg PO BID 30 Days #60 tab 04/17/21 The patient's discharge medication list was reviewed for discrepancies and discrepancies were resolved.
--- NOTE | 2021-04-18 15:38 | CASEMGMT ---
CARLINE VILLANUEVA Discharge Follow Up Phone Call: MIGUEL: Milagros Strata:2 Call Date: 04/18/21 Discharge Date: 3 min Time of Call: 1535 Duration: 2 min Admitting Dx:JEANNEID 20 CARLINE VILLANUEVA completed follow up phone call after recent hospitalization. Pt states she is doing well. Her pulse ox in the 90's. Pt did not qualify for home O2. Pt obtained her rx and is quarantining. Pt denies questions or concerns regarding dc instructions or medications.
== END 2021-04-17 16:00 | disposition home or self-care (01) | DRG 177 ==
LOC: ED 21:48 → MS3 04-16 00:49
PROVIDERS: Admitting Provider Family Medicine; Emergency Provider Emergency Medicine; PCP Internal Medicine; Visit Provider Internal Medicine
DX: U07.1 COVID-19 (principal); J12.82 Pneumonia due to coronavirus disease 2019; J15.9 Unspecified bacterial pneumonia; R09.02 Hypoxemia; E11.65 Type 2 diabetes mellitus with hyperglycemia; E03.9 Hypothyroidism, unspecified; E78.5 Hyperlipidemia, unspecified; K21.9 Gastro-esophageal reflux disease without esophagitis; F32.9 Major depressive disorder, single episode, unspecified; F41.9 Anxiety disorder, unspecified; J30.9 Allergic rhinitis, unspecified; R00.2 Palpitations; E66.9 Obesity, unspecified; Z68.30 Body mass index [BMI] 30.0-30.9, adult; Z79.890 Hormone replacement therapy; Z79.82 Long term (current) use of aspirin; Z79.84 Long term (current) use of oral hypoglycemic drugs; Z79.899 Other long term (current) drug therapy
CPT/HCPCS: 36415; 71045; 71275; 80048; 80053; 82728; 82962; 83036; 83615; 83880; 84145; 85025; 85379; 86140; 87449; 87633; 97802; 99251; 99284; J7030; Q9967; A4216; G0463; J0696